=== PATIENT | male | born 1960 | race Caucasian/White ===

== ENCOUNTER → 2017-08-15 | Emergency (ER) | payer SELFPAY ==
[~2017-08-15] MED LIST: Adacel Vial IM ONE; MORPHINE SULFATE 4 MG INJ IV ONE; MORPHINE SULFATE 4 MG INJ ONE; Sodium Chloride 0.9% 1000 ML 1,000 ML IV SCH; Sodium Chloride 0.9% 1000 ML 1,000 ML IV STA; Sodium Chloride 0.9% 1000 ML 1,000 ML ONE; TYLENOL 325 MG ONE; TYLENOL 325 MG PO STA; Zofran 4 MG/2 ML VIAL IV ONE; Zofran 4 MG/2 ML VIAL ONE
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
[2017-08-15 00:42] LABS: BASOPHIL % 0.3 % (0.0-0.4); Basophil (Absolute #) 0.02 (0-0.4); Eosinophil % 1.6 % (0.00-5.0); Eosinophil (Absolute #) 0.11 (0-0.5); Granulocyte Absolute (ANC) 3.98 (1.4-6.9); Granulocytes % 56.9 % (36.0-66.0); Hematocrit 42.7 % (42-50); Hemoglobin 14.3 gm/dl (12.5-18.0); Lymphocyte (Absolute #) 2.31 (1.0-4.6); Mean Cell Volume 99.8 fl (78-100); Mean Corpuscular Hemoglobin 33.4 pg (26-32); Mean Corpuscular Hgb Concent. 33.5 g/dl (32-36); Mean Platelet Volume 9.6 fl (6-9.5); Monocyte (Absolute #) 0.57 (0.0-1.3); Monocytes % 8.2 % (0.0-12.0); Platelet Count 174 K/mm3 (150-450); Red Blood Count 4.28 M/mm3 (4.1-5.6); Red Cell Distribution Width 14.2 % (11.5-14.0)
[2017-08-15 00:59] LABS: INR 0.94 (0.8-3.0)
[2017-08-15 01:10] LABS: ALBUMIN 4.3 g/dL (3.5-5.0); ALKALINE PHOSPHATASE 89 U/L (38-126); AMYLASE 95 U/L (30-110); BLOOD UREA NITROGEN 9 mg/dL (9-20); CHLORIDE 107 mmol/L (98-107); Calcium 8.9 mg/dL (8.4-10.2); Carbon Dioxide 23 mmol/L (22-30); Creatinine 1 0.74 mg/dL (0.66-1.25); ETHYL ALCOHOL 287 mg/dL (0-10); Glucose 132 mg/dL (74-106); LIPASE 542 U/L (23-300); Potassium 3.7 mmol/L (3.5-5.1); SGOT/AST 43 U/L (17-59); SGPT/ALT 22 U/L (0-50); SODIUM 146 mmol/L (137-145); Total Protein 7.6 g/dL (6.3-8.2)
[2017-08-15 01:58] LABS: Appearance CLEAR (CLEAR); Bilirubin NEGATIVE (NEGATIVE); Glucose NEGATIVE (NEGATIVE); Ketones NEGATIVE (NEGATIVE); Leukocyte Esterase NEGATIVE (NEGATIVE); Nitrite NEGATIVE (NEGATIVE); Protein,Urine Dip TRACE (Negative); Urobilinogen NORMAL mg/dL (0-1)
[2017-08-15 01:59] LABS: Bacteria FEW /HPF (NEGATIVE); Blood NEGATIVE Ery/ul (0-5); Epithelial Cells FEW /HPF (FEW); WBC 0-2 /HPF (0-5)
[2017-08-15 02:11] LABS: Amphetamine,Urine NEGATIVE (NEGATIVE); Barbiturate,Urine NEGATIVE (NEGATIVE); Benzodiazepine,Urine NEGATIVE (NEGATIVE); Cocaine,Urine NEGATIVE (NEGATIVE); Methadone,Urine NEGATIVE (NEGATIVE); Opiate,Urine NEGATIVE (NEGATIVE); PCP,Urine NEGATIVE (NEGATIVE); THC,Urine NEGATIVE (NEGATIVE)
[2017-08-15 04:54] VITALS: BP 128/75; PULSE 71
[2017-08-15 05:15] VITALS: O2SAT 96
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
== END ==
LOC: ED 00:04
DX: S22.049A Unspecified fracture of fourth thoracic vertebra, initial encounter for closed fracture (principal); S22.069A Unspecified fracture of T7-T8 vertebra, initial encounter for closed fracture; S22.079A Unspecified fracture of T9-T10 vertebra, initial encounter for closed fracture; S22.059A Unspecified fracture of T5-T6 vertebra, initial encounter for closed fracture; V29.49XA Motorcycle driver injured in collision with other motor vehicles in traffic accident, initial encounter; F10.129 Alcohol abuse with intoxication, unspecified
CPT/HCPCS: 36000; 36415; 70450; 71260; 72125; 74177; 76376; 80053; 80307; 81000; 82150; 83690; 84484; 85025; 85610; 90471; 90715; 93005; 93041; 96360; 96361; 96374; 99285; J2270; J2405; A9270-GY; G0480

== ENCOUNTER 2019-05-09 19:13 | Emergency (ER) | payer MEDICAID, SELFPAY ==
[2019-05-09] MEDS ORDERED: Zofran 4 MG/2 ML VIAL IV ONE (19:22)
[2019-05-09] MEDS ORDERED: Sodium Chloride 0.9% 1000 ML 1,000 ML IV STA (19:22)
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
[2019-05-09 19:27] LABS: A-aADO2 454; ABG POTASSIUM 3.9 (3.5-5.1); ARTERIAL BLD GAS O2 SATURATION 99.3 % (95-100); ARTERIAL BLOOD GAS BASE EXCESS 1.3 (-2.0-2.0); ARTERIAL BLOOD GAS FIO2 100 %; ARTERIAL BLOOD GAS PCO2 47 mmHg (35-45); ARTERIAL BLOOD GAS PO2 200 mmHg (75-100); ARTERIAL BLOOD GAS pH 7.37 (7.35-7.45); HCO3- 27.2 (22-28); HGB O2 SAT 87.6 g/dF (94-100); paO2 pAO1 0.31
[2019-05-09 19:29] LABS: CARBOXYHEMOGLOBIN 10.9 % THgb (0.0-6.9)
[2019-05-09 19:30] LABS: ABG SITE LEFT RADIAL; ALLEN TEST OK? YES
[2019-05-09 19:31] LABS: Absolute Neutrophil Ct (ANC) 7.53 (1.4-6.9); BASOPHIL % 0.6 % (0.0-0.4); Basophil (Absolute #) 0.07 (0-0.4); Eosinophil % 1.3 % (0.00-5.0); Eosinophil (Absolute #) 0.16 (0-0.5); Hemoglobin 15.5 gm/dl (12.5-18.0); Lymphocyte (Absolute #) 3.66 (1.0-4.6); Lymphocytes % 29.9 % (24.0-44.0); Mean Cell Volume 102.6 fl (78-100); Mean Corpuscular Hemoglobin 33.1 pg (26-32); Mean Corpuscular Hgb Concent. 32.3 g/dl (32-36); Mean Platelet Volume 9.5 fl (7.5-11.0); Monocyte (Absolute #) 0.84 (0.0-1.3); Monocytes % 6.9 % (0.0-12.0); Neutrophil % 61.3 % (36.0-66.0); Platelet Count 257 K/mm3 (150-450); Red Blood Count 4.68 M/mm3 (4.1-5.6); White Blood Count 12.3 K/mm3 (4.0-10.5)
[2019-05-09] MEDS ORDERED: solu-MEDROL 125 MG IV ONE (19:31)
[2019-05-09] MEDS ORDERED: Sodium Chloride 0.9% 1000 ML 1,000 ML ONE (19:37)
[2019-05-09] MEDS ORDERED: solu-MEDROL 125 MG ONE (19:37)
[2019-05-09] MEDS ORDERED: Zofran 4 MG/2 ML VIAL ONE (19:37)
[2019-05-09 19:38] LABS: ALBUMIN 4.6 g/dL (3.5-5.0); ALKALINE PHOSPHATASE 97 U/L (38-126); ANION GAP 14.9 MEQ/L (5-15); BLOOD UREA NITROGEN 7 mg/dL (9-20); CHLORIDE 109 mmol/L (98-107); Calcium 8.8 mg/dL (8.4-10.2); Carbon Dioxide 30 mmol/L (22-30); Creatinine 1 0.89 mg/dL (0.66-1.25); Glucose 109 mg/dL (74-106); SGOT/AST 32 U/L (17-59); SGPT/ALT 14 U/L (0-50); SODIUM 149 mmol/L (137-145); Total Protein 8.4 g/dL (6.3-8.2)
[2019-05-09] MEDS ORDERED: PROVENTIL 2.5 MG/3 ML NEB IH ONE ×2 (19:39→19:43)
[2019-05-09 19:48] LABS: ETHYL ALCOHOL 347 mg/dL (0-10)
[2019-05-09 21:42] LABS: Amphetamine,Urine NEGATIVE (NEGATIVE); Barbiturate,Urine NEGATIVE (NEGATIVE); Benzodiazepine,Urine NEGATIVE (NEGATIVE); Cocaine,Urine NEGATIVE (NEGATIVE); Methadone,Urine NEGATIVE (NEGATIVE); Opiate,Urine NEGATIVE (NEGATIVE); PCP,Urine NEGATIVE (NEGATIVE); THC,Urine NEGATIVE (NEGATIVE)
[2019-05-09 22:27] LABS: ARTERIAL BLOOD GAS PCO2 45 mmHg (35-45); ARTERIAL BLOOD GAS PO2 65 mmHg (75-100); ARTERIAL BLOOD GAS pH 7.37 (7.35-7.45)
[2019-05-09 22:28] LABS: A-aADO2 592; ABG HEMOGLOBIN 15.5; ABG POTASSIUM 4.3 (3.5-5.1); ARTERIAL BLD GAS O2 SATURATION 93.5 % (95-100); ARTERIAL BLOOD GAS BASE EXCESS 0.3 (-2.0-2.0); ARTERIAL BLOOD GAS FIO2 100 %; CARBOXYHEMOGLOBIN 7.2 % THgb (0.0-6.9); Methhemoglobin 0.8 % (1.4-1.5)
[2019-05-09] MEDS ORDERED: Sodium Chloride 0.9% 500 ML 500 ML IV ONE ×2 (22:28→22:30)
[2019-05-09 22:29] LABS: ABG SITE LEFT BRACHIAL; ALLEN TEST OK? NO
[2019-05-10 00:22] VITALS: BP 145/93; PULSE 78; O2SAT 96
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
== END 2019-05-10 00:22 | disposition home or self-care (01) ==
LOC: ED 19:13
DX: J70.5 Respiratory conditions due to smoke inhalation (principal); F10.129 Alcohol abuse with intoxication, unspecified
CPT/HCPCS: 36000; 36415; 36600; 71045; 80053; 80307; 82375; 82803; 85025; 93005; 93041; 94640; 94760; 96360; 96361; 96374; 96375; 99285; J2405; J2930; J7609; A9270-GY; G0480

== ENCOUNTER 2019-10-05 15:48 | Emergency (ER) | payer SELFPAY ==
[2019-10-05] MEDS ORDERED: Zofran 4 MG/2 ML VIAL IV ONE (16:02)
[2019-10-05] MEDS ORDERED: Sodium Chloride 0.9% 1000 ML 1,000 ML IV STA (16:02)
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
[2019-10-05] MEDS ORDERED: DUONEB 0.5-3 MG/3 ml Neb IH ONE ×2 (16:21→16:29)
[2019-10-05] MEDS ORDERED: solu-MEDROL 125 MG IV ONE (16:21)
--- NOTE | 2019-10-05 16:30 | XRAY ---
Indication: Syncope. Status post fall. Intoxication. Comparison: May 09, 2019. Portable chest again demonstrates normal heart and lungs with incidental calcified granulomas. Bony thorax intact again with mild degenerative changes. No new/acute findings.
[2019-10-05] MEDS ORDERED: solu-MEDROL 125 MG ONE (16:35)
[2019-10-05] MEDS ORDERED: Sodium Chloride 0.9% 1000 ML 1,000 ML ONE (16:35)
[2019-10-05] MEDS ORDERED: Zofran 4 MG/2 ML VIAL ONE (16:35)
[2019-10-05 16:59] LABS: Appearance CLEAR (CLEAR); Bilirubin NEGATIVE (NEGATIVE); Blood NEGATIVE Ery/ul (0-5); Glucose NEGATIVE (NEGATIVE); Ketones NEGATIVE (NEGATIVE); Leukocyte Esterase NEGATIVE (NEGATIVE); Nitrite NEGATIVE (NEGATIVE); Protein,Urine Dip NEGATIVE (Negative); Specific Gravity 1.003 (1.005-1.025); Urobilinogen NEGATIVE mg/dL (0-1)
[2019-10-05 17:06] LABS: Absolute Neutrophil Ct (ANC) 2.02 (1.4-6.9); BASOPHIL % 0.4 % (0.0-0.4); Basophil (Absolute #) 0.02 (0-0.4); Eosinophil % 3.1 % (0.00-5.0); Eosinophil (Absolute #) 0.16 (0-0.5); Hematocrit 48.1 % (42-50); Lymphocyte (Absolute #) 2.58 (1.0-4.6); Lymphocytes % 50.4 % (24.0-44.0); Mean Cell Volume 102.6 fl (78-100); Mean Corpuscular Hemoglobin 34.1 pg (26-32); Mean Corpuscular Hgb Concent. 33.3 g/dl (32-36); Mean Platelet Volume 9.7 fl (7.5-11.0); Monocyte (Absolute #) 0.34 (0.0-1.3); Monocytes % 6.6 % (0.0-12.0); Neutrophil % 39.5 % (36.0-66.0); Platelet Count 195 K/mm3 (150-450); Red Blood Count 4.69 M/mm3 (4.1-5.6); Red Cell Distribution Width 14.5 % (11.5-14.0); White Blood Count 5.1 K/mm3 (4.0-10.5)
[2019-10-05 17:11] LABS: ALBUMIN 4.4 g/dL (3.5-5.0); ALKALINE PHOSPHATASE 80 U/L (38-126); ANION GAP 13.7 MEQ/L (5-15); BLOOD UREA NITROGEN 8 mg/dL (9-20); CHLORIDE 112 mmol/L (98-107); Calcium 8.7 mg/dL (8.4-10.2); Carbon Dioxide 26 mmol/L (22-30); Creatinine 1 0.67 mg/dL (0.66-1.25); ETHYL ALCOHOL 283 mg/dL (0-10); Glucose 97 mg/dL (74-106); SGOT/AST 24 U/L (17-59); SGPT/ALT 13 U/L (0-50); SODIUM 148 mmol/L (137-145); Total Protein 7.2 g/dL (6.3-8.2)
[2019-10-05 20:21] LABS: Amphetamine,Urine NEGATIVE (NEGATIVE); Barbiturate,Urine NEGATIVE (NEGATIVE); Benzodiazepine,Urine NEGATIVE (NEGATIVE); Cocaine,Urine NEGATIVE (NEGATIVE); Methadone,Urine NEGATIVE (NEGATIVE); Opiate,Urine NEGATIVE (NEGATIVE); PCP,Urine NEGATIVE (NEGATIVE); THC,Urine NEGATIVE (NEGATIVE)
[2019-10-05 21:28] VITALS: BP 84/56; PULSE 63; O2SAT 93
--- NOTE | 2019-10-06 09:01 | XRAY ---
Indication: Injury following fall. Multiple contiguous axial images obtained through the head without contrast. Comparison: August 15, 2017. Stable age-appropriate global atrophy and mild periventricular degenerative micro-ischemia bilaterally. No acute intracranial hemorrhage, abnormal extra-axial fluid collection, or mass effect. Ventricular system remains prominent. Fourth ventricle is midline. Bony calvarium intact. Visualized paranasal sinuses and mastoid air cells are clear. Impression: 1. Continued nonacute senile brain. 2. Stable prominent ventricular system. Again normal pressure hydrocephalus not completely excluded in the right clinical setting.
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
== END 2019-10-05 21:33 | disposition home or self-care (01) ==
LOC: ED 15:48
DX: E86.0 Dehydration (principal); F10.929 Alcohol use, unspecified with intoxication, unspecified; R55 Syncope and collapse; J44.9 Chronic obstructive pulmonary disease, unspecified
CPT/HCPCS: 36000; 36415; 70450; 71045; 72125; 80053; 80307; 81001; 82550; 84484; 85025; 93005; 93041; 94640; 96360; 96374; 96375; 99284; J2405; J2930; A9270-GY; G0480

== ENCOUNTER 2020-10-16 16:52 | Observation (INO) | payer MEDICAID ==
[2020-10-16] MEDS ORDERED: DUONEB 0.5-3 MG/3 ml Neb IH ONE (16:55)
--- NOTE | 2020-10-16 17:03 | ERPHSYRPT ---
- History of Present Illness Time Seen by Provider: 10/16/20 17:03 Source: patient, family Exam Limitations: no limitations Physician History: This is a 59-year-old white male who had a history of COPD and emphysema and presents with 1 week history of worsening shortness of breath, cough and 103.2 F. The cough is productive and yellow sputum. Patient is not vaccinated. Patient does have a significant alcohol consumption history. He has chest pain only with cough. Patient has had fevers and chills at home. Patient denies abdominal pain. He has had no nausea vomiting but has had a few loose stools. He has no known contact with anyone who has tested positive for the anton virus. Timing/Duration: week(s) (1) Activities at Onset: none Severity of Dyspnea-Max: moderate Severity of Dyspnea-Current: moderate Possible Cause: frequent episodes Modifying Factors: Improves With: coughing Associated Symptoms: cough, chest pain/discomfort (With cough), productive cough (Yellowish sputum) Allergies/Adverse Reactions: No Known Drug Allergies Allergy (Verified 10/16/20 17:03) Home Medications: No Reportable Medications [No Reported Medications] 10/05/19 [History] Hx Tetanus, Diphtheria Vaccination/Date Given: No Hx Influenza Vaccination/Date Given: No Hx Pneumococcal Vaccination/Date Given: No Travel Risk - International Travel Have you traveled outside of the country in past 3 weeks: No - Coronavirus Screening Are you exhibiting any of the following symptoms?: Yes Symptoms: Fever, Cough: New Onset, Shortness of Breath Close contact with a COVID-19 positive Pt in past 14-21 Days: No - Vaccine Status Have you recieved a Covid-19 vaccination: No - Review of Systems Constitutional: Fever, Chills Eyes: No Symptoms Ears, Nose, & Throat: No Symptoms Respiratory: Cough, Dyspnea Cardiac: No Symptoms Abdominal/Gastrointestinal: No Symptoms Genitourinary Symptoms: No Symptoms Musculoskeletal: No Symptoms Skin: No Symptoms Neurological: No Symptoms Psychological: No Symptoms Endocrine: No Symptoms Hematologic/Lymphatic: No Symptoms Immunological/Allergic: No Symptoms All Other Systems: Reviewed and Negative - Past Medical History Pertinent Past Medical History: No Neurological History: No Pertinent History ENT History: No Pertinent History Cardiac History: No Pertinent History Respiratory History: COPD, Emphysema Endocrine Medical History: No Pertinent History Musculoskeletal History: No Pertinent History GI Medical History: No Pertinent History History: No Pertinent History Psycho-Social History: No Pertinent History Male Reproductive Disorders: No Pertinent History - Past Surgical History Past Surgical History: Yes Neuro Surgical History: No Pertinent History Cardiac: No Pertinent History Respiratory: No Pertinent History Gastrointestinal: No Pertinent History Genitourinary: No Pertinent History Musculoskeletal: No Pertinent History Male Surgical History: No Pertinent History - Social History Smoking Status: Current every day smoker How long have you smoked: years Exposure to second hand smoke: No Drug Use: none Patient Lives Alone: No - Nursing Vital Signs Nursing Vital Signs: Initial Vital Signs Temperature 103.2 F 10/16/20 16:53 Pulse Rate 118 H 10/16/20 16:53 Respiratory Rate 34 H 10/16/20 16:53 Blood Pressure 238/109 10/16/20 16:53 O2 Sat by Pulse Oximetry 94 L 10/16/20 16:53 Pain Scale Pain Intensity 0 - Physical Exam General Appearance: mild distress, alert, anxiety Eye Exam: PERRL/EOMI, eyes nml inspection Ears, Nose, Throat Exam: hearing grossly normal, normal ENT inspection, normal pharynx Neck Exam: normal inspection, non-tender, supple, full range of motion Respiratory Exam: normal breath sounds, chest tenderness (With cough), lungs clear, respiratory distress (Mild), airway intact Cardiovascular/Chest Exam: tachycardia Abdominal/Gastrointestinal Exam: soft, normal bowel sounds, No tenderness Rectal Exam: not done Extremity Exam: non-tender, normal range of motion, normal inspection, normal capillary refill, no calf tenderness, no pedal edema, pelvis stable Neurologic Exam: alert, oriented x 3, cooperative, manager internet II-XII nml as tested, normal mood/affect, nml cerebellar function, nml station & gait, sensation nml Skin Exam: normal color, warm Lymphatic Exam: No adenopathy SpO2 Interpretation: borderline oxygenation O2 Delivery: Nasal Cannula - Course Nursing assessment & vital signs reviewed: Yes EKG Interpreted by Me: RATE ([id number]), Sinus Tach, NORMAL AXIS, NORMAL INTERVALS, NORMAL QRS, Other (When compared to EKG dated 10/05/2019, there is new sinus tachycardia, left atrial enlargement and diffuse borderline ST depression that are new on today's EKG.) Ordered Tests: Active Orders 24 hr Category Date Time Status Area Counselor STAT Care 10/16/20 17:18 Active EKG-ER Only STAT Care 10/16/20 17:17 Active IV Insertion STAT Care 10/16/20 17:17 Active IV Insertion-2nd Peripheral STAT Care 10/16/20 17:23 Active Oxygen-ED Only Nasal Cannula 3 lpm Care 10/16/20 17:23 Active Pulse Oximetry (ED) STAT Care 10/16/20 17:17 Active CHEST 1 VIEW (PORTABLE) Stat Exams 10/16/20 17:18 Taken CHEST WITH CONTRAST [CT] Stat Exams 10/16/20 18:25 Taken Alcohol [ETHYL ALCOHOL] Stat Lab 10/16/20 17:05 Completed BLOOD CULTURE Stat Lab 10/16/20 17:05 Received CBC W DIFF Stat Lab 10/16/20 17:05 Completed CMP Stat Lab 10/16/20 17:05 Completed CULTURE,SPUTUM Stat Lab 10/16/20 20:00 Ordered D-DIMER QUANTITATIVE Stat Lab 10/16/20 17:05 Completed Lactic Acid Stat Lab 10/16/20 17:21 Completed Lactic Acid Stat Lab 10/16/20 19:32 Completed MAGNESIUM Stat Lab 10/16/20 17:05 Completed Manual Differential NC Stat Lab 10/16/20 17:05 Completed NT PRO BNP Stat Lab 10/16/20 17:05 Completed TROPONIN Q3H Lab 10/16/20 17:05 Completed TROPONIN Q3H Lab 10/16/20 19:55 Received TROPONIN Q3H Lab 10/16/20 23:30 Ordered TROPONIN Q3H Lab 10/17/20 02:30 Ordered TROPONIN Q3H Lab 10/17/20 05:30 Ordered Respiratory Therapy Assessment DAILY RT 10/16/20 17:13 Active Transfer Order Routine Transfer 10/16/20 Ordered Medication Summary Generic Name Dose Route Start Last Admin Trade Name Freq PRN Reason Stop Dose Admin Sodium Chloride 1,000 mls @ 100 mls/hr 10/16/20 17:30 10/16/20 17:40 Sodium Chloride 0.9% 1000 Ml IV 11/15/20 17:29 100 mls/hr .Q10H JAROD Administration Ceftriaxone Sodium/Dextrose 1 g in 50 mls @ 100 mls/hr 10/16/20 20:46 Rocephin 1 Gm-D5w 50 Ml Bag IV 10/16/20 21:15 STAT STA Discontinued Medications Generic Name Dose Route Start Last Admin Trade Name Freq PRN Reason Stop Dose Admin Hydrocodone Bitart/Acetaminophen 10 ml 10/16/20 17:19 10/16/20 17:41 Hydrocodone-Acetamin 2.5-108/5 Ml Solution PO 10/16/20 17:20 10 ml STAT STA Administration Hydrocodone Bitart/Acetaminophen Confirm 10/16/20 17:30 Hydrocodone-Acetamin 2.5-108/5 Ml Solution Administered 10/16/20 17:31 Dose 10 ml .ROUTE .STK-MED ONE Albuterol/Ipratropium Confirm 10/16/20 16:55 Duoneb 0.5-3 Mg/3 Ml Neb Administered 10/16/20 16:56 Dose 3 ml IH .STK-MED ONE Methylprednisolone Sodium Succinate 125 mg 10/16/20 17:17 10/16/20 17:41 Solu-Medrol 125 Mg IV 10/16/20 17:18 125 mg STAT ONE Administration Methylprednisolone Sodium Succinate Confirm 10/16/20 17:30 Solu-Medrol 125 Mg Administered 10/16/20 17:31 Dose 125 mg .ROUTE .STK-MED ONE Sterile Water Confirm 10/16/20 17:30 Sterile H2o 10 Ml Administered 10/16/20 17:31 Dose 10 ml IJ .STK-MED ONE Lab/Rad Data: Laboratory Result Diagrams 10/16/20 17:05 10/16/20 17:05 Laboratory Results 10/16/20 10/16/20 10/16/20 Range/Units 19:32 17:21 17:05 WBC (4.0-10.5) K/mm3 RBC (4.1-5.6) M/mm3 Hgb (12.5-18.0) gm/dl Hct (42-50) % MCV (78-100) fl MCH (26-32) pg MCHC (32-36) g/dl RDW (11.5-14.0) % Plt Count (150-450) K/mm3 MPV (7.5-11.0) fl D-Dimer (215-500) ng/mL Sodium (137-145) mmol/L Potassium (3.5-5.1) mmol/L Chloride (98-107) mmol/L Carbon Dioxide (22-30) mmol/L Anion Gap (5-15) MEQ/L BUN (9-20) mg/dL Creatinine (0.66-1.25) mg/dL Estimated GFR ML/MIN Glucose (74-106) mg/dL Lactic Acid 1.2 2.2 H (0.4-2.0) Calcium (8.4-10.2) mg/dL Magnesium (1.6-2.3) mg/dL Total Bilirubin (0.2-1.3) mg/dL AST (17-59) U/L ALT (0-50) U/L Alkaline Phosphatase (38-126) U/L Troponin I (0.000-0.034) ng/mL NT-Pro-B Natriuret Pep (0-900) pg/mL Serum Total Protein (6.3-8.2) g/dL Albumin (3.5-5.0) g/dL Ethyl Alcohol < 10 (0-10) mg/dL 10/16/20 10/16/20 10/16/20 Range/Units 17:05 17:05 17:05 WBC (4.0-10.5) K/mm3 RBC (4.1-5.6) M/mm3 Hgb (12.5-18.0) gm/dl Hct (42-50) % MCV (78-100) fl MCH (26-32) pg MCHC (32-36) g/dl RDW (11.5-14.0) % Plt Count (150-450) K/mm3 MPV (7.5-11.0) fl D-Dimer 1401 H* (215-500) ng/mL Sodium 137 (137-145) mmol/L Potassium 4.1 (3.5-5.1) mmol/L Chloride 92 L (98-107) mmol/L Carbon Dioxide 22 (22-30) mmol/L Anion Gap 26.5 H (5-15) MEQ/L BUN 14 (9-20) mg/dL Creatinine 0.83 (0.66-1.25) mg/dL Estimated GFR > 60.0 ML/MIN Glucose 142 H (74-106) mg/dL Lactic Acid (0.4-2.0) Calcium 9.1 (8.4-10.2) mg/dL Magnesium 1.6 (1.6-2.3) mg/dL Total Bilirubin 0.70 (0.2-1.3) mg/dL AST 34 (17-59) U/L ALT 19 (0-50) U/L Alkaline Phosphatase 79 (38-126) U/L Troponin I 0.017 (0.000-0.034) ng/mL NT-Pro-B Natriuret Pep 104 (0-900) pg/mL Serum Total Protein 7.9 (6.3-8.2) g/dL Albumin 4.5 (3.5-5.0) g/dL Ethyl Alcohol (0-10) mg/dL 10/16/20 Range/Units 17:05 WBC 10.0 (4.0-10.5) K/mm3 RBC 4.67 (4.1-5.6) M/mm3 Hgb 14.9 (12.5-18.0) gm/dl Hct 44.7 (42-50) % MCV 95.7 (78-100) fl MCH 31.9 (26-32) pg MCHC 33.3 (32-36) g/dl RDW 13.0 (11.5-14.0) % Plt Count 222 (150-450) K/mm3 MPV 9.9 (7.5-11.0) fl D-Dimer (215-500) ng/mL Sodium (137-145) mmol/L Potassium (3.5-5.1) mmol/L Chloride (98-107) mmol/L Carbon Dioxide (22-30) mmol/L Anion Gap (5-15) MEQ/L BUN (9-20) mg/dL Creatinine (0.66-1.25) mg/dL Estimated GFR ML/MIN Glucose (74-106) mg/dL Lactic Acid (0.4-2.0) Calcium (8.4-10.2) mg/dL Magnesium (1.6-2.3) mg/dL Total Bilirubin (0.2-1.3) mg/dL AST (17-59) U/L ALT (0-50) U/L Alkaline Phosphatase (38-126) U/L Troponin I (0.000-0.034) ng/mL NT-Pro-B Natriuret Pep (0-900) pg/mL Serum Total Protein (6.3-8.2) g/dL Albumin (3.5-5.0) g/dL Ethyl Alcohol (0-10) mg/dL - Progress Progress: improved, re-examined Air Movement: fair Progress Note: 10/16/20 20:41 CAT scan of the chest with contrast is negative for any pulmonary embolus. There is diffuse bilateral patchy airspace disease without consolidation or effusion. Medical decision making: This patient would be best served in the hospital setting. I spoke with Dr. maynard. I reviewed the patient history, condition, physical findings, laboratory results, EKG findings and CAT scan of the chest results. We will place the patient in observation. We will also provide the patient with intravenous Rocephin and azithromycin. We will perform a Covid test on this patient. If is positive then we will contact Dr. Saleh for placement in observation on the Covid unit. Blood Culture(s) Obtained: Yes Antibiotics given: Yes Discussed with : Irma Counseled pt/family regarding: lab results, diagnosis, need for follow-up, rad results - Departure Departure Disposition: Observation Clinical Impression: Hypoxia, Cough, Pulmonary infiltrates on CXR Condition: Stable Critical Care Time: No Referrals: RAZA CRUZ [NON-STAFF PHY W/O PRIVILEGES] -
[2020-10-16] MEDS ORDERED: solu-MEDROL IV ONE (17:17)
[2020-10-16] MEDS ORDERED: HYDROCODONE-ACETAMIN 2.5-108/5 ML SOLUTION PO STA (17:19)
[2020-10-16] MEDS ORDERED: solu-MEDROL ONE (17:30)
[2020-10-16] MEDS ORDERED: HYDROCODONE-ACETAMIN 2.5-108/5 ML SOLUTION ONE (17:30)
[2020-10-16] MEDS ORDERED: Sterile H2O 10 ml IJ ONE (17:30)
[2020-10-16] MEDS ORDERED: Sodium Chloride 0.9% 1000 ML 1,000 ML IV SCH (17:30)
[2020-10-16] MEDS ORDERED: Sodium Chloride 0.9% 1000 ML 1,000 ML ONE (17:30)
[2020-10-16 17:34] LABS: Hematocrit 44.7 % (42-50); Hemoglobin 14.9 gm/dl (12.5-18.0); Mean Cell Volume 95.7 fl (78-100); Mean Corpuscular Hemoglobin 31.9 pg (26-32); Mean Corpuscular Hgb Concent. 33.3 g/dl (32-36); Mean Platelet Volume 9.9 fl (7.5-11.0); Platelet Count 222 K/mm3 (150-450); Red Blood Count 4.67 M/mm3 (4.1-5.6)
[2020-10-16 17:57] LABS: ALBUMIN 4.5 g/dL (3.5-5.0); ALKALINE PHOSPHATASE 79 U/L (38-126); ANION GAP 26.5 MEQ/L (5-15); BLOOD UREA NITROGEN 14 mg/dL (9-20); CHLORIDE 92 mmol/L (98-107); Calcium 9.1 mg/dL (8.4-10.2); Carbon Dioxide 22 mmol/L (22-30); Creatinine 1 0.83 mg/dL (0.66-1.25); EST GLOMERULAR FILTRATION RATE > 60.0 ML/MIN; Glucose 142 mg/dL (74-106); MAGNESIUM 1.6 mg/dL (1.6-2.3); NT PRO BNP 104 pg/mL (0-900); Potassium 4.1 mmol/L (3.5-5.1); SGOT/AST 34 U/L (17-59); SGPT/ALT 19 U/L (0-50); SODIUM 137 mmol/L (137-145); Total Protein 7.9 g/dL (6.3-8.2)
[2020-10-16] MEDS ORDERED: ROCEPHIN 1 Gm-D5w 50 ml Bag** 1 G/50 ML IVPB IV STA (20:46)
[2020-10-16] MEDS ORDERED: ROCEPHIN 1 Gm-D5w 50 ml Bag** 1 G/50 ML IVPB IV ONE (20:51)
[2020-10-16] MEDS ORDERED: Zofran 4 MG/2 ML VIAL IV PRN (22:32)
[2020-10-16] MEDS ORDERED: Ativan 2 MG/1 ML VIAL IV PRN (22:32)
[2020-10-16] MEDS: Sodium Chloride 0.9% 1000 ML 1,000 ML IV SCH (22:54)
[2020-10-16 23:15] LABS: ANISOCYTOSIS 1+; BAND 4 % (0.0-2.0); Lymphocytes 6 % (24-44); Monocyte 9 % (0.0-12.0); Neutrophils 81 % (36.-66.); Platelet Estimate NORMAL (NORMAL); Total Cells Counted 100
[2020-10-16 23:16] LABS: Poikilocytosis 1+
[2020-10-16] MEDS: PROVENTIL 2.5 MG/3 ML NEB IH PRN (23:36)
[2020-10-17] MEDS: TYLENOL 325 MG PO PRN ×2 (00:22→11:53)
[2020-10-17 05:01] LABS: Absolute Neutrophil Ct (ANC) 6.86 (1.4-6.9); Basophil (Absolute #) 0 (0-0.4); Eosinophil (Absolute #) 0 (0-0.5); Hematocrit 40.8 % (42-50); Hemoglobin 13.4 gm/dl (12.5-18.0); Lymphocyte (Absolute #) 0.28 (1.0-4.6); Lymphocytes % 3.6 % (24.0-44.0); Mean Cell Volume 97.8 fl (78-100); Mean Corpuscular Hemoglobin 32.1 pg (26-32); Mean Corpuscular Hgb Concent. 32.8 g/dl (32-36); Mean Platelet Volume 9.8 fl (7.5-11.0); Monocyte (Absolute #) 0.59 (0.0-1.3); Monocytes % 7.6 % (0.0-12.0); Neutrophil % 88.8 % (36.0-66.0); Platelet Count 191 K/mm3 (150-450); Red Blood Count 4.17 M/mm3 (4.1-5.6); Red Cell Distribution Width 12.7 % (11.5-14.0); White Blood Count 7.7 K/mm3 (4.0-10.5)
[2020-10-17 05:21] LABS: ALBUMIN 3.6 g/dL (3.5-5.0); ALKALINE PHOSPHATASE 62 U/L (38-126); ANION GAP 14.5 MEQ/L (5-15); BLOOD UREA NITROGEN 15 mg/dL (9-20); CHLORIDE 97 mmol/L (98-107); Calcium 9.1 mg/dL (8.4-10.2); Carbon Dioxide 26 mmol/L (22-30); Creatinine 1 0.73 mg/dL (0.66-1.25); EST GLOMERULAR FILTRATION RATE > 60.0 ML/MIN; Glucose 170 mg/dL (74-106); SGOT/AST 31 U/L (17-59); SGPT/ALT 19 U/L (0-50); SODIUM 134 mmol/L (137-145); Total Protein 6.4 g/dL (6.3-8.2)
[2020-10-17 06:53] LABS: Slide Review 1 YES
[2020-10-17] MEDS: PROVENTIL 2.5 MG/3 ML NEB IH PRN ×2 (07:26→11:15)
[2020-10-17] MEDS ORDERED: Nicoderm CQ 21 MG TOP SCH (08:00)
--- NOTE | 2020-10-17 08:43 | XRAY ---
Indication: Productive cough and fever. Elevated d-dimer. Multiple contiguous axial images obtained through the chest using 100 cc Isovue 370 contrast. Comparison: August 15, 2017. There is adequate opacification of the pulmonary arteries include the lobar and segmental branches. No pulmonary embolus. Heart not enlarged. Aorta minimally arteriosclerotic without aneurysm/dissection. Again chunky right hilar calcified nodes. No pathologic mediastinal/hilar lymphadenopathy. Lungs again hyperinflated with new diffuse bilateral patchy airspace opacities. No consolidation or large effusion. Incidental new left lung peripheral subsegmental atelectasis/scarring and tiny calcified granuloma. Stable small right upper lobe calcified granuloma. Bony thorax intact again with multilevel bridging/nonbridging endplate osteophytes. Limited upper abdomen again demonstrates tiny splenic calcified granulomas, mild fatty liver, and nonobstructing left renal micro-calculus. Impression: 1. Negative pulmonary embolus. 2. New diffuse bilateral patchy airspace disease. 3. Again incidental fatty liver, nonobstructing left renal micro-calculus, chronic bony findings, and old granulomatous disease.
--- NOTE | 2020-10-17 08:45 | XRAY ---
Indication: Productive cough and fever. Comparison: October 05, 2019. Portable chest again hyperinflated with new diffuse bilateral interstitial alveolar opacities without consolidation/large effusion. Heart not enlarged. Stable right hilar/right upper lobe calcified granulomas. Bony thorax intact again with mild degenerative changes.
[2020-10-17] MEDS: Sodium Chloride 0.9% 1000 ML 1,000 ML IV SCH (09:03)
[2020-10-17] MEDS ORDERED: Zithromax 500 MG/ 250 ML NaCl Premix 500 MG/250 ML IVPB IV SCH ×2 (10:00→22:00)
--- NOTE | 2020-10-17 12:06 | PCM.HP ---
History of Present Illness - Chief Complaint Chief Complaint: fever, chills and shortness of breath for 3-4 days History of Present Illness: is a 59 year old male.who had a history of COPD and emphysema and presents with 1 week history of worsening shortness of breath, cough and 103.2 F. The cough is productive and yellow sputum. Patient is not vaccinated. Patient does have a significant alcohol consumption history. He has chest pain only with cough. Patient has had fevers and chills at home. Patient denies abdominal pain. He has had no nausea vomiting but has had a few loose stools. He has no known contact with anyone who has tested positive for the anton virus. Timing/Duration: week(s) (1) Activities at Onset: none Severity of Dyspnea-Max: moderate Severity of Dyspnea-Current: moderate Possible Cause: frequent episodes Modifying Factors: Improves With: coughing Associated Symptoms: cough, chest pain/discomfort (With cough), productive cough (Yellowish sputum) - Review of Systems Constitutional: Fever, Chills Eyes: No Symptoms Ears, Nose, & Throat: No Symptoms Respiratory: Cough, Orthopnea, Short Of Breath, Wheezing Cardiac: Orthopnea, PND, No Chest Pain, No Edema, No Syncope Abdominal/Gastrointestinal: No Abdominal Pain, No Nausea, No Vomiting, No Diarrhea Genitourinary Symptoms: No Dysuria Musculoskeletal: No Back Pain, No Neck Pain Skin: No Rash Neurological: No Dizziness, No Focal Weakness, No Sensory Changes Psychological: No Symptoms Endocrine: No Symptoms Hematologic/Lymphatic: No Symptoms Immunological/Allergic: No Symptoms Medications & Allergies Home Medications: Home Medication List No Reportable Medications [No Reported Medications] 10/05/19 [History Confirmed 10/16/20] Allergies/Adverse Reactions: Allergies Allergy/AdvReac Type Severity Reaction Status Date / Time No Known Drug Allergies Allergy Verified 10/16/20 17:03 - Past Medical History Past Medical History: No Neurological History: No Pertinent History ENT History: No Pertinent History Cardiac History: No Pertinent History Respiratory History: No Pertinent History Endocrine Medical History: No Pertinent History Musculoskelatal History: No Pertinent History GI Medical History: No Pertinent History History: No Pertinent History Pyscho-Social History: No Pertinent History Male Reproductive Disorders: No Pertinent History Comment: - - Past Surgical History Past Surgical History: Yes Neuro Surgical History: No Pertinent History Cardiac History: No Pertinent History Respiratory Surgery: No Pertinent History GI Surgical History: No Pertinent History Genitourinary Surgical Hx: No Pertinent History Musculskeletal Surgical Hx: No Pertinent History Male Surgical History: No Pertinent History - Social History Smoking Status: Former smoker How long have you smoked: years Exposure to second hand smoke: No Alcohol: Daily Drug Use: none - Physical Exam Vital Signs: Vital Signs - 24 hr Temp Pulse Resp BP Pulse Ox 10/17/20 11:20 85 18 90 L 10/17/20 07:28 86 22 95 10/17/20 07:09 99.1 F 71 16 130/65 96 10/17/20 04:05 98.6 F 69 20 117/63 97 10/17/20 00:05 84 18 94 L 10/16/20 22:45 100.2 F 83 24 144/91 94 L 10/16/20 22:32 94 L 10/16/20 22:09 84 154/82 95 10/16/20 20:00 99.3 F 84 20 129/78 95 10/16/20 19:14 99 H 135/66 96 10/16/20 18:00 102 H 20 132/74 93 L 10/16/20 17:50 104 H 22 139/79 92 L 10/16/20 17:22 89 L 10/16/20 17:00 116 H 34 H 94 L 10/16/20 16:53 103.2 F 118 H 30 H 238/109 89 L Oxygen-Last 24 hours Oxygen Flowrate (L/min)-RT 4 General Appearance: no apparent distress, moderate distress, alert Neurologic Exam: alert, oriented x 3, No motor deficits Eye Exam: PERRL/EOMI, eyes nml inspection Ears, Nose, Throat Exam: normal ENT inspection, TMs normal, pharynx normal, moist mucous membranes Neck Exam: normal inspection, non-tender, supple, full range of motion Respiratory Exam: respiratory distress, diminished breath sounds, crackles/rales, rhonchi, wheezing Cardiovascular Exam: regular rate/rhythm, normal heart sounds, normal peripheral pulses Gastrointestinal/Abdomen Exam: soft, normal bowel sounds, No tenderness, No mass Back Exam: normal inspection, normal range of motion, No CVA tenderness, No vertebral tenderness Extremity Exam: normal inspection, normal range of motion, pelvis stable Skin Exam: normal color, warm, dry, No rash Lymphatic Exam: No adenopathy Results - Labs Lab/Micro Results: Lab Results-Last 24 Hours 10/16/20 10/16/20 10/16/20 Range/Units 17:05 17:05 17:05 WBC 10.0 (4.0-10.5) K/mm3 RBC 4.67 (4.1-5.6) M/mm3 Hgb 14.9 (12.5-18.0) gm/dl Hct 44.7 (42-50) % MCV 95.7 (78-100) fl MCH 31.9 (26-32) pg MCHC 33.3 (32-36) g/dl RDW 13.0 (11.5-14.0) % Plt Count 222 (150-450) K/mm3 MPV 9.9 (7.5-11.0) fl Gran % (36.0-66.0) % Eos # (Auto) (0-0.5) Absolute Lymphs (auto) (1.0-4.6) Absolute Monos (auto) (0.0-1.3) Lymphocytes % (24.0-44.0) % Monocytes % (0.0-12.0) % Eosinophils % (0.00-5.0) % Basophils % (0.0-0.4) % Absolute Granulocytes (1.4-6.9) Segmented Neutrophils 81 H (36.-66.) % Band Neutrophils 4 H (0.0-2.0) % Lymphocytes (Manual) 6 L (24-44) % Monocytes (Manual) 9 (0.0-12.0) % Basophils # (0-0.4) Platelet Estimate NORMAL (NORMAL) RBC Morphology ABNORMAL Poikilocytosis 1+ Anisocytosis 1+ D-Dimer 1401 H* (215-500) ng/mL Sodium 137 (137-145) mmol/L Potassium 4.1 (3.5-5.1) mmol/L Chloride 92 L (98-107) mmol/L Carbon Dioxide 22 (22-30) mmol/L Anion Gap 26.5 H (5-15) MEQ/L BUN 14 (9-20) mg/dL Creatinine 0.83 (0.66-1.25) mg/dL Estimated GFR > 60.0 ML/MIN Glucose 142 H (74-106) mg/dL Lactic Acid (0.4-2.0) Calcium 9.1 (8.4-10.2) mg/dL Magnesium 1.6 (1.6-2.3) mg/dL Total Bilirubin 0.70 (0.2-1.3) mg/dL AST 34 (17-59) U/L ALT 19 (0-50) U/L Alkaline Phosphatase 79 (38-126) U/L Troponin I (0.000-0.034) ng/mL NT-Pro-B Natriuret Pep 104 (0-900) pg/mL Serum Total Protein 7.9 (6.3-8.2) g/dL Albumin 4.5 (3.5-5.0) g/dL Ethyl Alcohol (0-10) mg/dL SARS-CoV-2 (PCR) (NEGATIVE) Slides for Path Review 10/16/20 10/16/20 10/16/20 Range/Units 17:05 17:05 17:21 WBC (4.0-10.5) K/mm3 RBC (4.1-5.6) M/mm3 Hgb (12.5-18.0) gm/dl Hct (42-50) % MCV (78-100) fl MCH (26-32) pg MCHC (32-36) g/dl RDW (11.5-14.0) % Plt Count (150-450) K/mm3 MPV (7.5-11.0) fl Gran % (36.0-66.0) % Eos # (Auto) (0-0.5) Absolute Lymphs (auto) (1.0-4.6) Absolute Monos (auto) (0.0-1.3) Lymphocytes % (24.0-44.0) % Monocytes % (0.0-12.0) % Eosinophils % (0.00-5.0) % Basophils % (0.0-0.4) % Absolute Granulocytes (1.4-6.9) Segmented Neutrophils (36.-66.) % Band Neutrophils (0.0-2.0) % Lymphocytes (Manual) (24-44) % Monocytes (Manual) (0.0-12.0) % Basophils # (0-0.4) Platelet Estimate (NORMAL) RBC Morphology Poikilocytosis Anisocytosis D-Dimer (215-500) ng/mL Sodium (137-145) mmol/L Potassium (3.5-5.1) mmol/L Chloride (98-107) mmol/L Carbon Dioxide (22-30) mmol/L Anion Gap (5-15) MEQ/L BUN (9-20) mg/dL Creatinine (0.66-1.25) mg/dL Estimated GFR ML/MIN Glucose (74-106) mg/dL Lactic Acid 2.2 H (0.4-2.0) Calcium (8.4-10.2) mg/dL Magnesium (1.6-2.3) mg/dL Total Bilirubin (0.2-1.3) mg/dL AST (17-59) U/L ALT (0-50) U/L Alkaline Phosphatase (38-126) U/L Troponin I 0.017 (0.000-0.034) ng/mL NT-Pro-B Natriuret Pep (0-900) pg/mL Serum Total Protein (6.3-8.2) g/dL Albumin (3.5-5.0) g/dL Ethyl Alcohol < 10 (0-10) mg/dL SARS-CoV-2 (PCR) (NEGATIVE) Slides for Path Review 10/16/20 10/16/20 10/16/20 Range/Units 19:32 19:55 20:50 WBC (4.0-10.5) K/mm3 RBC (4.1-5.6) M/mm3 Hgb (12.5-18.0) gm/dl Hct (42-50) % MCV (78-100) fl MCH (26-32) pg MCHC (32-36) g/dl RDW (11.5-14.0) % Plt Count (150-450) K/mm3 MPV (7.5-11.0) fl Gran % (36.0-66.0) % Eos # (Auto) (0-0.5) Absolute Lymphs (auto) (1.0-4.6) Absolute Monos (auto) (0.0-1.3) Lymphocytes % (24.0-44.0) % Monocytes % (0.0-12.0) % Eosinophils % (0.00-5.0) % Basophils % (0.0-0.4) % Absolute Granulocytes (1.4-6.9) Segmented Neutrophils (36.-66.) % Band Neutrophils (0.0-2.0) % Lymphocytes (Manual) (24-44) % Monocytes (Manual) (0.0-12.0) % Basophils # (0-0.4) Platelet Estimate (NORMAL) RBC Morphology Poikilocytosis Anisocytosis D-Dimer (215-500) ng/mL Sodium (137-145) mmol/L Potassium (3.5-5.1) mmol/L Chloride (98-107) mmol/L Carbon Dioxide (22-30) mmol/L Anion Gap (5-15) MEQ/L BUN (9-20) mg/dL Creatinine (0.66-1.25) mg/dL Estimated GFR ML/MIN Glucose (74-106) mg/dL Lactic Acid 1.2 (0.4-2.0) Calcium (8.4-10.2) mg/dL Magnesium (1.6-2.3) mg/dL Total Bilirubin (0.2-1.3) mg/dL AST (17-59) U/L ALT (0-50) U/L Alkaline Phosphatase (38-126) U/L Troponin I 0.036 H* (0.000-0.034) ng/mL NT-Pro-B Natriuret Pep (0-900) pg/mL Serum Total Protein (6.3-8.2) g/dL Albumin (3.5-5.0) g/dL Ethyl Alcohol (0-10) mg/dL SARS-CoV-2 (PCR) NEGATIVE (NEGATIVE) Slides for Path Review 10/16/20 10/17/20 10/17/20 Range/Units 23:30 02:58 04:50 WBC (4.0-10.5) K/mm3 RBC (4.1-5.6) M/mm3 Hgb (12.5-18.0) gm/dl Hct (42-50) % MCV (78-100) fl MCH (26-32) pg MCHC (32-36) g/dl RDW (11.5-14.0) % Plt Count (150-450) K/mm3 MPV (7.5-11.0) fl Gran % (36.0-66.0) % Eos # (Auto) (0-0.5) Absolute Lymphs (auto) (1.0-4.6) Absolute Monos (auto) (0.0-1.3) Lymphocytes % (24.0-44.0) % Monocytes % (0.0-12.0) % Eosinophils % (0.00-5.0) % Basophils % (0.0-0.4) % Absolute Granulocytes (1.4-6.9) Segmented Neutrophils (36.-66.) % Band Neutrophils (0.0-2.0) % Lymphocytes (Manual) (24-44) % Monocytes (Manual) (0.0-12.0) % Basophils # (0-0.4) Platelet Estimate (NORMAL) RBC Morphology Poikilocytosis Anisocytosis D-Dimer (215-500) ng/mL Sodium (137-145) mmol/L Potassium (3.5-5.1) mmol/L Chloride (98-107) mmol/L Carbon Dioxide (22-30) mmol/L Anion Gap (5-15) MEQ/L BUN (9-20) mg/dL Creatinine (0.66-1.25) mg/dL Estimated GFR ML/MIN Glucose (74-106) mg/dL Lactic Acid (0.4-2.0) Calcium (8.4-10.2) mg/dL Magnesium (1.6-2.3) mg/dL Total Bilirubin (0.2-1.3) mg/dL AST (17-59) U/L ALT (0-50) U/L Alkaline Phosphatase (38-126) U/L Troponin I 0.027 0.021 0.019 (0.000-0.034) ng/mL NT-Pro-B Natriuret Pep (0-900) pg/mL Serum Total Protein (6.3-8.2) g/dL Albumin (3.5-5.0) g/dL Ethyl Alcohol (0-10) mg/dL SARS-CoV-2 (PCR) (NEGATIVE) Slides for Path Review 10/17/20 10/17/20 Range/Units 04:50 04:50 WBC 7.7 (4.0-10.5) K/mm3 RBC 4.17 (4.1-5.6) M/mm3 Hgb 13.4 (12.5-18.0) gm/dl Hct 40.8 L (42-50) % MCV 97.8 (78-100) fl MCH 32.1 H (26-32) pg MCHC 32.8 (32-36) g/dl RDW 12.7 (11.5-14.0) % Plt Count 191 (150-450) K/mm3 MPV 9.8 (7.5-11.0) fl Gran % 88.8 H (36.0-66.0) % Eos # (Auto) 0 (0-0.5) Absolute Lymphs (auto) 0.28 L (1.0-4.6) Absolute Monos (auto) 0.59 (0.0-1.3) Lymphocytes % 3.6 L (24.0-44.0) % Monocytes % 7.6 (0.0-12.0) % Eosinophils % 0.0 (0.00-5.0) % Basophils % 0.0 (0.0-0.4) % Absolute Granulocytes 6.86 (1.4-6.9) Segmented Neutrophils (36.-66.) % Band Neutrophils (0.0-2.0) % Lymphocytes (Manual) (24-44) % Monocytes (Manual) (0.0-12.0) % Basophils # 0 (0-0.4) Platelet Estimate (NORMAL) RBC Morphology Poikilocytosis Anisocytosis D-Dimer (215-500) ng/mL Sodium 134 L (137-145) mmol/L Potassium 4.0 (3.5-5.1) mmol/L Chloride 97 L (98-107) mmol/L Carbon Dioxide 26 (22-30) mmol/L Anion Gap 14.5 (5-15) MEQ/L BUN 15 (9-20) mg/dL Creatinine 0.73 (0.66-1.25) mg/dL Estimated GFR > 60.0 ML/MIN Glucose 170 H (74-106) mg/dL Lactic Acid (0.4-2.0) Calcium 9.1 (8.4-10.2) mg/dL Magnesium (1.6-2.3) mg/dL Total Bilirubin 0.30 (0.2-1.3) mg/dL AST 31 (17-59) U/L ALT 19 (0-50) U/L Alkaline Phosphatase 62 (38-126) U/L Troponin I (0.000-0.034) ng/mL NT-Pro-B Natriuret Pep (0-900) pg/mL Serum Total Protein 6.4 (6.3-8.2) g/dL Albumin 3.6 (3.5-5.0) g/dL Ethyl Alcohol (0-10) mg/dL SARS-CoV-2 (PCR) (NEGATIVE) Slides for Path Review YES - Radiology Impressions Radiology Exams & Impressions: Radiology Procedures Category Date Time Status CHEST 1 VIEW (PORTABLE) Stat Exams 10/16/20 17:18 Completed CHEST WITH CONTRAST [CT] Stat Exams 10/16/20 18:25 Completed - Other Procedures and Tests Respiratory Therapy 10/16/20 17:13 Respiratory Therapy Assessment DAILY 10/16/20 23:37 Oxygen Nasal Cannula 4 lpm Assessment/Plan (1) Pneumonia Current Visit: Yes Status: Acute Qualifiers: Pneumonia type: due to unspecified organism Laterality: unspecified laterality Lung location: unspecified part of lung Qualified Code(s): J18.9 - Pneumonia, unspecified organism Assessment & Plan: Chief Complaint Diagnosis hypoxia Allergies Allergy/AdvReac Type Severity Reaction Status Date / Time No Known Drug Allergies Allergy Verified 10/16/20 17:03 Vital Signs (Last 24 hours) Temp Pulse Resp BP Pulse Ox 10/17/20 11:20 85 18 90 L 10/17/20 07:28 86 22 95 10/17/20 07:09 99.1 F 71 16 130/65 96 10/17/20 04:05 98.6 F 69 20 117/63 97 10/17/20 00:05 84 18 94 L 10/16/20 22:45 100.2 F 83 24 144/91 94 L 10/16/20 22:32 94 L 10/16/20 22:09 84 154/82 95 10/16/20 20:00 99.3 F 84 20 129/78 95 10/16/20 19:14 99 H 135/66 96 10/16/20 18:00 102 H 20 132/74 93 L 10/16/20 17:50 104 H 22 139/79 92 L 10/16/20 17:22 89 L 10/16/20 17:00 116 H 34 H 94 L 10/16/20 16:53 103.2 F 118 H 30 H 238/109 89 L Current Medications Generic Name Dose Route Start Last Admin Trade Name Cheri PRN Reason Stop Dose Admin Acetaminophen 650 mg 10/16/20 22:32 10/17/20 11:53 Tylenol 325 Mg PO 11/15/20 22:31 650 mg Q4H PRN PRN Administration PAIN, FEVER, HEADACHE Albuterol Sulfate 2.5 mg 10/16/20 23:33 10/17/20 11:15 Proventil 2.5 Mg/3 Ml Neb IH 11/15/20 23:32 2.5 mg Q4H PRN PRN Administration SHORTNESS OF BREATH/WHEEZING Sodium Chloride 1,000 mls @ 50 mls/hr 10/16/20 22:32 10/17/20 09:03 Sodium Chloride 0.9% 1000 Ml IV 11/15/20 22:31 50 mls/hr .Q20H JAROD Administration Ceftriaxone Sodium/Dextrose 1 g in 50 mls @ 100 mls/hr 10/17/20 22:00 Rocephin 1 Gm-D5w 50 Ml Bag IV 10/20/20 21:59 Q24H22 JAROD Azithromycin 500 mg in 250 mls @ 250 mls/hr 10/17/20 22:00 Zithromax 500 Mg/ 250 Ml Nacl Premix IV 11/16/20 21:59 Q24H22 JAROD Lorazepam 1 mg 10/16/20 22:32 Ativan 2 Mg/1 Ml Vial IV 11/15/20 22:31 Q4H PRN PRN ANXIETY Nicotine 21 mg 10/17/20 08:00 10/17/20 07:50 Nicoderm Cq 21 Mg TOP 11/16/20 07:59 21 mg Q24H JAROD Administration Ondansetron HCl 4 mg 10/16/20 22:32 Zofran 4 Mg/2 Ml Vial IV 11/15/20 22:31 Q6H PRN PRN NAUSEA/VOMITING Discontinued Medications Generic Name Dose Route Start Last Admin Trade Name Cheri PRN Reason Stop Dose Admin Hydrocodone Bitart/Acetaminophen 10 ml 10/16/20 17:19 10/16/20 17:41 Hydrocodone-Acetamin 2.5-108/5 Ml Solution PO 10/16/20 17:20 10 ml STAT STA Administration Hydrocodone Bitart/Acetaminophen Confirm 10/16/20 17:30 Hydrocodone-Acetamin 2.5-108/5 Ml Solution Administered 10/16/20 17:31 Dose 10 ml .ROUTE .STK-MED ONE Albuterol/Ipratropium Confirm 10/16/20 16:55 Duoneb 0.5-3 Mg/3 Ml Neb Administered 10/16/20 16:56 Dose 3 ml IH .STK-MED ONE Sodium Chloride 1,000 mls @ 100 mls/hr 10/16/20 17:30 10/16/20 17:40 Sodium Chloride 0.9% 1000 Ml IV 11/15/20 17:29 100 mls/hr .Q10H JAROD Administration Ceftriaxone Sodium/Dextrose 1 g in 50 mls @ 100 mls/hr 10/16/20 20:46 10/16/20 21:35 Rocephin 1 Gm-D5w 50 Ml Bag IV 10/16/20 21:15 Infused STAT STA Infusion Ceftriaxone Sodium/Dextrose Confirm 10/16/20 20:51 Rocephin 1 Gm-D5w 50 Ml Bag Administered 10/16/20 20:52 Dose 1 g in 50 mls @ ud IV .STK-MED ONE Sodium Chloride Confirm 10/16/20 17:30 Sodium Chloride 0.9% 1000 Ml Administered 10/16/20 17:31 Dose 1,000 mls @ ud .ROUTE .STK-MED ONE Azithromycin 500 mg in 250 mls @ 250 mls/hr 10/17/20 10:00 10/16/20 22:54 Zithromax 500 Mg/ 250 Ml Nacl Premix IV 11/16/20 09:59 250 mls/hr Q24H10 JAROD Administration Methylprednisolone Sodium Succinate 125 mg 10/16/20 17:17 10/16/20 17:41 Solu-Medrol 125 Mg IV 10/16/20 17:18 125 mg STAT ONE Administration Methylprednisolone Sodium Succinate Confirm 10/16/20 17:30 Solu-Medrol 125 Mg Administered 10/16/20 17:31 Dose 125 mg .ROUTE .STK-MED ONE Sterile Water Confirm 10/16/20 17:30 Sterile H2o 10 Ml Administered 10/16/20 17:31 Dose 10 ml IJ .STK-MED ONE Intake & Output (Last 24 hours) 10/15/20 10/16/20 10/17/2010/18/21 11:59 11:59 11:59 11:59 Intake Total 1452 Balance 1452 Weight 84.9 kg Microbiology Results (Last 24 hours) 10/16/20 20:00 Sputum - Expectorant Gram Stain - Pending 10/16/20 20:00 Sputum - Expectorant Sputum Culture - Pending 10/16/20 17:05 Blood Blood Culture Gram Stain - Pending 10/16/20 17:05 Blood Blood Culture - Pending 10/16/20 17:07 Blood Blood Culture Gram Stain - Pending 10/16/20 17:07 Blood Blood Culture - Pending Laboratory Results (Last 24 hours) 10/17/20 10/17/20 10/17/20 04:50 04:50 04:50 WBC 7.7 RBC 4.17 Hgb 13.4 Hct 40.8 L MCV 97.8 MCH 32.1 H MCHC 32.8 RDW 12.7 Plt Count 191 MPV 9.8 Gran % 88.8 H Eos # (Auto) 0 Absolute Lymphs (auto) 0.28 L Absolute Monos (auto) 0.59 Lymphocytes % 3.6 L Monocytes % 7.6 Eosinophils % 0.0 Basophils % 0.0 Absolute Granulocytes 6.86 Segmented Neutrophils Band Neutrophils Lymphocytes (Manual) Monocytes (Manual) Basophils # 0 Platelet Estimate RBC Morphology Poikilocytosis Anisocytosis D-Dimer Sodium 134 L Potassium 4.0 Chloride 97 L Carbon Dioxide 26 Anion Gap 14.5 BUN 15 Creatinine 0.73 Estimated GFR > 60.0 Glucose 170 H Lactic Acid Calcium 9.1 Magnesium Total Bilirubin 0.30 AST 31 ALT 19 Alkaline Phosphatase 62 Troponin I 0.019 NT-Pro-B Natriuret Pep Serum Total Protein 6.4 Albumin 3.6 Ethyl Alcohol SARS-CoV-2 (PCR) Slides for Path Review YES 10/17/20 10/16/20 10/16/20 02:58 23:30 20:50 WBC RBC Hgb Hct MCV MCH MCHC RDW Plt Count MPV Gran % Eos # (Auto) Absolute Lymphs (auto) Absolute Monos (auto) Lymphocytes % Monocytes % Eosinophils % Basophils % Absolute Granulocytes Segmented Neutrophils Band Neutrophils Lymphocytes (Manual) Monocytes (Manual) Basophils # Platelet Estimate RBC Morphology Poikilocytosis Anisocytosis D-Dimer Sodium Potassium Chloride Carbon Dioxide Anion Gap BUN Creatinine Estimated GFR Glucose Lactic Acid Calcium Magnesium Total Bilirubin AST ALT Alkaline Phosphatase Troponin I 0.021 0.027 NT-Pro-B Natriuret Pep Serum Total Protein Albumin Ethyl Alcohol SARS-CoV-2 (PCR) NEGATIVE Slides for Path Review 10/16/20 10/16/20 10/16/20 19:55 19:32 17:21 WBC RBC Hgb Hct MCV MCH MCHC RDW Plt Count MPV Gran % Eos # (Auto) Absolute Lymphs (auto) Absolute Monos (auto) Lymphocytes % Monocytes % Eosinophils % Basophils % Absolute Granulocytes Segmented Neutrophils Band Neutrophils Lymphocytes (Manual) Monocytes (Manual) Basophils # Platelet Estimate RBC Morphology Poikilocytosis Anisocytosis D-Dimer Sodium Potassium Chloride Carbon Dioxide Anion Gap BUN Creatinine Estimated GFR Glucose Lactic Acid 1.2 2.2 H Calcium Magnesium Total Bilirubin AST ALT Alkaline Phosphatase Troponin I 0.036 H* NT-Pro-B Natriuret Pep Serum Total Protein Albumin Ethyl Alcohol SARS-CoV-2 (PCR) Slides for Path Review 10/16/20 10/16/20 10/16/20 17:05 17:05 17:05 WBC RBC Hgb Hct MCV MCH MCHC RDW Plt Count MPV Gran % Eos # (Auto) Absolute Lymphs (auto) Absolute Monos (auto) Lymphocytes % Monocytes % Eosinophils % Basophils % Absolute Granulocytes Segmented Neutrophils Band Neutrophils Lymphocytes (Manual) Monocytes (Manual) Basophils # Platelet Estimate RBC Morphology Poikilocytosis Anisocytosis D-Dimer 1401 H* Sodium Potassium Chloride Carbon Dioxide Anion Gap BUN Creatinine Estimated GFR Glucose Lactic Acid Calcium Magnesium Total Bilirubin AST ALT Alkaline Phosphatase Troponin I 0.017 NT-Pro-B Natriuret Pep Serum Total Protein Albumin Ethyl Alcohol < 10 SARS-CoV-2 (PCR) Slides for Path Review 10/16/20 10/16/20 17:05 17:05 WBC 10.0 RBC 4.67 Hgb 14.9 Hct 44.7 MCV 95.7 MCH 31.9 MCHC 33.3 RDW 13.0 Plt Count 222 MPV 9.9 Gran % Eos # (Auto) Absolute Lymphs (auto) Absolute Monos (auto) Lymphocytes % Monocytes % Eosinophils % Basophils % Absolute Granulocytes Segmented Neutrophils 81 H Band Neutrophils 4 H Lymphocytes (Manual) 6 L Monocytes (Manual) 9 Basophils # Platelet Estimate NORMAL RBC Morphology ABNORMAL Poikilocytosis 1+ Anisocytosis 1+ D-Dimer Sodium 137 Potassium 4.1 Chloride 92 L Carbon Dioxide 22 Anion Gap 26.5 H BUN 14 Creatinine 0.83 Estimated GFR > 60.0 Glucose 142 H Lactic Acid Calcium 9.1 Magnesium 1.6 Total Bilirubin 0.70 AST 34 ALT 19 Alkaline Phosphatase 79 Troponin I NT-Pro-B Natriuret Pep 104 Serum Total Protein 7.9 Albumin 4.5 Ethyl Alcohol SARS-CoV-2 (PCR) Slides for Path Review Orders (Last 24 hours) Category Date Time Status Bedrest TOLERATED Activity 10/16/20 22:32 Active Town Clerk STAT Care 10/16/20 17:18 Completed Code Status Order ROUTINE Care 10/16/20 22:32 Active EKG-ER Only STAT Care 10/16/20 17:17 Completed IV Insertion STAT Care 10/16/20 17:17 Completed IV Insertion-2nd Peripheral STAT Care 10/16/20 17:23 Completed Oxygen-ED Only Nasal Cannula 3 lpm Care 10/16/20 17:[address] in Observation ROUTINE Care 10/16/20 22:32 Active Pulse Oximetry (ED) STAT Care 10/16/20 17:17 Completed Telemetry q6h Care 10/16/20 22:32 Active Weight,Daily 0600 Care 10/16/20 22:32 Active Rn Pool/Discharge Plan ROUTINE Cons 10/16/20 22:44 Active Heart-Healthy Diet Diet 10/16/20 Dinner Active CHEST 1 VIEW (PORTABLE) Stat Exams 10/16/20 17:18 Completed CHEST WITH CONTRAST [CT] Stat Exams 10/16/20 18:25 Completed Alcohol [ETHYL ALCOHOL] Stat Lab 10/16/20 17:05 Completed BLOOD CULTURE Stat Lab 10/16/20 17:05 Received CBC W DIFF AM.LAB Lab 10/17/20 04:50 Completed CBC W DIFF Stat Lab 10/16/20 17:05 Completed CMP AM.LAB Lab 10/17/20 04:50 Completed CMP Stat Lab 10/16/20 17:05 Completed CULTURE,SPUTUM Stat Lab 10/16/20 20:00 Ordered D-DIMER QUANTITATIVE Stat Lab 10/16/20 17:05 Completed Lactic Acid Stat Lab 10/16/20 17:21 Completed Lactic Acid Stat Lab 10/16/20 19:32 Completed MAGNESIUM Stat Lab 10/16/20 17:05 Completed Manual Differential NC Stat Lab 10/16/20 17:05 Completed NT PRO BNP Stat Lab 10/16/20 17:05 Completed SARS-CoV-2 Xpert Express Routine Lab 10/16/20 20:50 Completed TROPONIN Q3H Lab 10/16/20 17:05 Completed TROPONIN Q3H Lab 10/16/20 19:55 Completed TROPONIN Q3H Lab 10/16/20 23:30 Completed TROPONIN Q3H Lab 10/17/20 02:58 Completed TROPONIN Q3H Lab 10/17/20 04:50 Completed Acetaminophen 325 mg [Tylenol 325 mg] Med 10/16/20 22:32 Active 650 mg PO Q4H PRN PRN Albuterol 2.5 mg/3 ml Neb [Proventil 2.5 mg/3 ml Neb Med 10/16/20 23:33 Active ] 2.5 mg IH Q4H PRN PRN Albuterol/Ipratropium 3ml Neb* [DUONEB 0.5-3 MG/3 ml Med 10/16/20 16:55 Discontinued Neb] 3 ml IH .STK-MED ONE Azithromycin 500 mg/250 ml [Zithromax 500 MG/ 250 ML Med 10/17/20 10:00 Discontinued NaCl Premix] 500 mg in 250 ml IV Q24H10 Azithromycin 500 mg/250 ml [Zithromax 500 MG/ 250 ML Med 10/17/20 22:00 Active NaCl Premix] 500 mg in 250 ml IV Q24H22 Ceftriaxone 1 GM/50 ML PREMIX* [ROCEPHIN 1 Gm-D5w 50 ml Med 10/17/20 22:00 Active Bag] 1 g in 50 ml IV Q24H22 Ceftriaxone 1 GM/50 ML PREMIX* [ROCEPHIN 1 Gm-D5w 50 ml Med 10/16/20 20:46 Discontinued Bag] 1 g in 50 ml IV STAT Ceftriaxone 1 GM/50 ML PREMIX* [ROCEPHIN 1 Gm-D5w 50 ml Med 10/16/20 20:51 Discontinued Bag] 1 g in 50 ml IV UD Hydrocodone/Acetaminophen [Hydrocodone-Acetamin 2.5-108 Med 10/16/20 17:30 Discontinued /5 ml Solution] 10 ml .ROUTE .STK-MED ONE Hydrocodone/Acetaminophen [Hydrocodone-Acetamin 2.5-108 Med 10/16/20 17:19 Discontinued /5 ml Solution] 10 ml PO STAT STA Lorazepam 2 mg/1 ml [Ativan 2 MG/1 ML VIAL] Med 10/16/20 22:32 Active 1 mg IV Q4H PRN PRN Methylprednis Sod Succ 125 mg* [solu-MEDROL 125 MG] Med 10/16/20 17:30 Discontinued 125 mg .ROUTE .STK-MED ONE Methylprednis Sod Succ 125 mg* [solu-MEDROL 125 MG] Med 10/16/20 17:17 Discontinued 125 mg IV STAT ONE NaCl 0.9% 1000 ml [Sodium Chloride 0.9% 1000 ML] 1,000 Med 10/16/20 17:30 Discontinued ml .ROUTE UD NaCl 0.9% 1000 ml [Sodium Chloride 0.9% 1000 ML] 1,000 Med 10/16/20 17:30 Discontinued ml IV 100 mls/hr NaCl 0.9% 1000 ml [Sodium Chloride 0.9% 1000 ML] 1,000 Med 10/16/20 22:32 Active ml IV 50 mls/hr Nicotine 21 mg [Nicoderm CQ 21 MG] Med 10/17/20 08:00 Active 21 mg TOP Q24H Ondansetron HCl 4 mg/2 ml [Zofran 4 MG/2 ML VIAL] Med 10/16/20 22:32 Active 4 mg IV Q6H PRN PRN Water For Injection,Sterile [Sterile H2O 10 ml] Med 10/16/20 17:30 Discontinued 10 ml IJ .STK-MED ONE Oxygen Nasal Cannula 4 lpm RT 10/16/20 23:37 Active Pulse Oximetry .spot check RT 10/16/20 22:32 Active Respiratory Therapy Assessment DAILY RT 10/16/20 17:13 Active Respiratory Therapy Consult ROUTINE RT 10/16/20 22:32 Completed Patient Care Notes (Last 24 hours) 10/17/20 10:43 Nursing Note by Vilma Mata Pt frequently with his N/C off. Noted before pt's shower his SPO2 was (2 % on room air , After showering 91% on room air without c/o. Initialized on 10/17/20 10:43 - END OF NOTE 10/17/20 10:15 Case Management Note by Kerry Boyle S/W PATIENT ABOUT ALCOHOL USE- HE STATED HE HARDLY DRINKS ANYMORE AND DENIES ANY NEED FOR HELP REGARDING HIS ALCOHOL USE. Initialized on 10/17/20 10:15 - END OF NOTE Code(s): J18.9 - PNEUMONIA, UNSPECIFIED ORGANISM (2) Cough Current Visit: Yes Status: Acute Code(s): R05 - COUGH (3) Hypoxia Current Visit: Yes Status: Acute Code(s): R09.02 - HYPOXEMIA
[2020-10-17 13:19] VITALS: BP 163/89; PULSE 88; O2SAT 92
[2020-10-17] MEDS ORDERED: ROCEPHIN 1 Gm-D5w 50 ml Bag** 1 G/50 ML IVPB IV SCH (22:00)
--- NOTE | 2020-10-18 20:05 | PCM.DS ---
Discharge Summary Date of Admission: 10/16/20 22:31 Admitting Physician: ROM JOHNSON Primary Care Provider: NO FAMILY DOCTOR Allergies Allergies No Known Drug Allergies Allergy (Verified 10/16/20 17:03) Hospital Summary - Hospital Course Hospital Course: Chief Complaint Diagnosis fever, chills and shortness of breath for 3-4 days Allergies Allergy/AdvReac Type Severity Reaction Status Date / Time No Known Drug Allergies Allergy Verified 10/16/20 17:03 Home Medications Medication Instructions Recorded Confirmed Last Taken Type Fluticasone/Salmeterol * 2 puff IH BIDRT #1 aer.w.adap 10/17/20 Unknown Rx [Advair Hfa Mcg Inhaler] Levofloxacin [Levaquin] 500 mg PO DAILY 7 Days #7 tablet 10/17/20 Unknown Rx Current Medications Discontinued Medications Generic Name Dose Route Start Last Admin Trade Name Freq PRN Reason Stop Dose Admin Acetaminophen 650 mg 10/16/20 22:32 10/17/20 11:53 Tylenol 325 Mg PO 11/15/20 22:31 650 mg Q4H PRN PRN Administration PAIN, FEVER, HEADACHE Hydrocodone Bitart/Acetaminophen 10 ml 10/16/20 17:19 10/16/20 17:41 Hydrocodone-Acetamin 2.5-108/5 Ml Solution PO 10/16/20 17:20 10 ml STAT STA Administration Hydrocodone Bitart/Acetaminophen Confirm 10/16/20 17:30 Hydrocodone-Acetamin 2.5-108/5 Ml Solution Administered 10/16/20 17:31 Dose 10 ml .ROUTE .STK-MED ONE Albuterol Sulfate 2.5 mg 10/16/20 23:33 10/17/20 11:15 Proventil 2.5 Mg/3 Ml Neb IH 11/15/20 23:32 2.5 mg Q4H PRN PRN Administration SHORTNESS OF BREATH/WHEEZING Albuterol/Ipratropium Confirm 10/16/20 16:55 Duoneb 0.5-3 Mg/3 Ml Neb Administered 10/16/20 16:56 Dose 3 ml IH .STK-MED ONE Sodium Chloride 1,000 mls @ 100 mls/hr 10/16/20 17:30 10/16/20 17:40 Sodium Chloride 0.9% 1000 Ml IV 11/15/20 17:29 100 mls/hr .Q10H JAROD Administration Ceftriaxone Sodium/Dextrose 1 g in 50 mls @ 100 mls/hr 10/16/20 20:46 10/16/20 21:35 Rocephin 1 Gm-D5w 50 Ml Bag IV 10/16/20 21:15 Infused STAT STA Infusion Ceftriaxone Sodium/Dextrose Confirm 10/16/20 20:51 Rocephin 1 Gm-D5w 50 Ml Bag Administered 10/16/20 20:52 Dose 1 g in 50 mls @ ud IV .STK-MED ONE Sodium Chloride Confirm 10/16/20 17:30 Sodium Chloride 0.9% 1000 Ml Administered 10/16/20 17:31 Dose 1,000 mls @ ud .ROUTE .STK-MED ONE Sodium Chloride 1,000 mls @ 50 mls/hr 10/16/20 22:32 10/17/20 09:03 Sodium Chloride 0.9% 1000 Ml IV 11/15/20 22:31 50 mls/hr .Q20H JAROD Administration Ceftriaxone Sodium/Dextrose 1 g in 50 mls @ 100 mls/hr 10/17/20 22:00 Rocephin 1 Gm-D5w 50 Ml Bag IV 10/20/20 21:59 Q24H22 JAROD Azithromycin 500 mg in 250 mls @ 250 mls/hr 10/17/20 10:00 10/16/20 22:54 Zithromax 500 Mg/ 250 Ml Nacl Premix IV 11/16/20 09:59 250 mls/hr Q24H10 JAROD Administration Azithromycin 500 mg in 250 mls @ 250 mls/hr 10/17/20 22:00 Zithromax 500 Mg/ 250 Ml Nacl Premix IV 11/16/20 21:59 Q24H22 JAROD Lorazepam 1 mg 10/16/20 22:32 Ativan 2 Mg/1 Ml Vial IV 11/15/20 22:31 Q4H PRN PRN ANXIETY Methylprednisolone Sodium Succinate 125 mg 10/16/20 17:17 10/16/20 17:41 Solu-Medrol 125 Mg IV 10/16/20 17:18 125 mg STAT ONE Administration Methylprednisolone Sodium Succinate Confirm 10/16/20 17:30 Solu-Medrol 125 Mg Administered 10/16/20 17:31 Dose 125 mg .ROUTE .STK-MED ONE Nicotine 21 mg 10/17/20 08:00 10/17/20 07:50 Nicoderm Cq 21 Mg TOP 11/16/20 07:59 21 mg Q24H JAROD Administration Ondansetron HCl 4 mg 10/16/20 22:32 Zofran 4 Mg/2 Ml Vial IV 11/15/20 22:31 Q6H PRN PRN NAUSEA/VOMITING Sterile Water Confirm 10/16/20 17:30 Sterile H2o 10 Ml Administered 10/16/20 17:31 Dose 10 ml IJ .STK-MED ONE Intake & Output (Last 24 hours) 10/16/20 10/17/20 10/18/20 10/19/20 11:59 11:59 11:59 11:59 Intake Total 1452 360 Balance 1452 360 Weight 84.9 kg Microbiology Results (Last 24 hours) 10/16/20 17:05 Blood Blood Culture Gram Stain - Pending 10/16/20 17:05 Blood Blood Culture - Preliminary NO GROWTH TO DATE Orders (Last 24 hours) Category Date Time Status Azithromycin 500 mg/250 ml [Zithromax 500 MG/ 250 ML Med 10/17/20 22:00 Discontinued NaCl Premix] 500 mg in 250 ml IV Q24H22 Ceftriaxone 1 GM/50 ML PREMIX* [ROCEPHIN 1 Gm-D5w 50 ml Med 10/17/20 22:00 Discontinued Bag] 1 g in 50 ml IV Q24H22 - Vitals & Intake/Output Vital Signs: Vital Signs Temperature 99.4 F 10/17/20 12:00 Pulse Rate 88 10/17/20 12:00 Respiratory Rate 18 10/17/20 12:00 Blood Pressure 163/89 10/17/20 12:00 O2 Sat by Pulse Oximetry 92 L 10/17/20 12:00 Intake & Output: Intake & Output 10/16/20 10/17/20 10/18/20 10/19/20 11:59 11:59 11:59 11:59 Intake Total 1452 360 Balance 1452 360 Weight 84.9 kg - Lab Result Diagrams: 10/17/20 04:50 10/17/20 04:50 Micro Results-Entire Visit: Microbiology 10/16/20 17:05 Blood Culture - Preliminary Blood NO GROWTH TO DATE - Procedures and Test Procedures and Tests throughout Hospitalization: Therapy Orders & Screens 10/16/20 17:13 Respiratory Therapy Assessment DAILY Comment: 10/16/20 22:32 Respiratory Therapy Consult ROUTINE Comment: Reason For Exam: 10/16/20 23:37 Oxygen Nasal Cannula 4 lpm Comment: Diagnosis: hypoxia Discharge Exam General Appearance: no apparent distress, alert Neurologic Exam: alert, oriented x 3, cooperative, normal mood/affect, nml cerebellar function, sensation nml, No motor deficits Eye Exam: PERRL, EOMI, eyes nml inspection Ears, Nose, Throat Exam: normal ENT inspection, pharynx normal, moist mucous membranes Neck Exam: normal inspection, non-tender, supple, full range of motion Respiratory Exam: normal breath sounds, lungs clear, No respiratory distress Cardiovascular Exam: regular rate/rhythm, normal heart sounds Gastrointestinal/Abdomen Exam: soft, No tenderness, No mass Male Genitalia Exam: deferred Rectal Exam: deferred Back Exam: normal inspection, normal range of motion, No CVA tenderness, No vertebral tenderness Extremity Exam: normal inspection, normal range of motion Skin Exam: normal color, warm, dry Final Diagnosis/Problem List - Final Discharge Diagnosis/Problem (1) Pneumonia Status: Resolved Code(s): J18.9 - PNEUMONIA, UNSPECIFIED ORGANISM (2) Cough Status: Resolved Code(s): R05 - COUGH (3) Hypoxia Status: Resolved Code(s): R09.02 - HYPOXEMIA - Discharge Discharge Date: 10/17/20 Disposition: Home, Self-Care Condition: Stable Prescriptions: New Fluticasone/Salmeterol 115/21* [Advair Hfa 115/21 Mcg Inhaler] 2 puff IH BIDRT #1 aer.w.adap Levofloxacin [Levaquin] 500 mg PO DAILY 7 Days #7 tablet Instructions: Pneumonia in Adults Additional Instructions: FINISH THE MEDICAID PROCESS DETAILED ON PAPERWORK GIVEN TO YOU. IF YOU NEED ASSISTANCE YOU CAN CONTACT STEPHANIE GLYNN AT [phone] Follow up with: ROM JOHNSON MD [ACTIVE STAFF] - 10/25/20 11:00 am Forms: Discharge Instructions
== END 2020-10-17 14:55 | disposition home or self-care (01) ==
LOC: ED 16:52 → MED SURG 22:31
PROVIDERS: ADMIT General Practice; ATTEND General Practice
DX: J18.9 Pneumonia, unspecified organism (principal); R07.9 Chest pain, unspecified; F17.200 Nicotine dependence, unspecified, uncomplicated; R05 Cough; R09.02 Hypoxemia; Z20.828 Contact with and (suspected) exposure to other viral communicable diseases
CPT/HCPCS: 36000; 36415; 71045; 71260; 80053; 80307; 83605; 83735; 83880; 84484; 85025; 85379; 87040; 87070; 87077; 93005; 93041; 93268; 94640; 94760; 96374; 99285; G0378; U0003; J0456; J0696; J2930; J7609; A9270-GY; G0480

== ENCOUNTER 2022-11-14 20:59 | Observation (INO) | payer MEDICAID ==
[2022-11-14] MEDS ORDERED: Sodium Chloride 0.9% 1000 ML 1,000 ML IV STA (21:18)
--- NOTE | 2022-11-14 21:21 | ERPHSYRPT ---
- History of Present Illness Source: patient, EMS Exam Limitations: no limitations Patient Subjective Stated Complaint: pt states earlier today he had an episode where he felt a strange feeling from up his legs and got lightheaded. states he has been feeling unswell since. denies chest pain or pressure Triage Nursing Assessment: pt alert and oriented, answers questions approp. pt arrive per ambulance and transfers to stretcher per self. skin warm and dry. respirations nonlabored. pupils equal and reactive. bilat upper and lower ext strength equal and wnl. no facial droop noted. Hx Tetanus, Diphtheria Vaccination/Date Given: No (unsure) Hx Influenza Vaccination/Date Given: No Hx Pneumococcal Vaccination/Date Given: No Immunizations Up to Date: No <DORIS HARDEN - Last Filed: 11/15/22 06:49> <ROM JOHNSON - Last Filed: 11/15/22 08:06> - History of Present Illness Time Seen by Provider: 11/14/22 21:01 Physician History: 61 years old male with a history of hypertension noncompliant with medications presented in the ER via EMS with chief complaint of sudden onset funny feeling starting from both feet traveling up and started to feel dizzy/lightheaded prior to arrival when he was walking. Patient reports she has been walking all day long in the hot and probably got heat exhausted. Denies any chest pain palpitations or shortness of breath. Denies any focal numbness tingling or weakness. It lasted for few minutes and got wobbly, improved back to his baseline prior to arrival in the ER. Patient denies any visual disturbance. Patient does report he did not eat all day long and has been walking, is probably hungry. Denies any associated nausea or vomiting. (DORIS HARDEN) Allergies/Adverse Reactions: No Known Drug Allergies Allergy (Verified 11/14/22 21:18) Travel Risk - International Travel Have you traveled outside of the country in past 3 weeks: No - Coronavirus Screening Are you exhibiting any of the following symptoms?: No Close contact with a COVID-19 positive Pt in past 14-21 Days: No - Vaccine Status Have you recieved a Covid-19 vaccination: No <DORIS HARDEN - Last Filed: 11/15/22 06:49> - Review of Systems Constitutional: Fatigue, Weakness Eyes: No Symptoms Ears, Nose, & Throat: No Symptoms Respiratory: No Symptoms Cardiac: No Symptoms Abdominal/Gastrointestinal: No Symptoms Genitourinary Symptoms: No Symptoms Musculoskeletal: No Symptoms Skin: No Symptoms Neurological: Dizziness Psychological: No Symptoms Endocrine: No Symptoms Hematologic/Lymphatic: No Symptoms Immunological/Allergic: No Symptoms <FINADORIS Last Filed: 11/15/22 06:49> - Past Medical History Pertinent Past Medical History: No Neurological History: No Pertinent History ENT History: No Pertinent History Cardiac History: Hypertension Respiratory History: No Pertinent History Endocrine Medical History: No Pertinent History Musculoskeletal History: No Pertinent History GI Medical History: No Pertinent History History: No Pertinent History Psycho-Social History: No Pertinent History Male Reproductive Disorders: No Pertinent History Other Medical History: does not treat htn-states he has not insurance - Past Surgical History Past Surgical History: Yes Neuro Surgical History: No Pertinent History Cardiac: No Pertinent History Respiratory: No Pertinent History Gastrointestinal: No Pertinent History Genitourinary: No Pertinent History Musculoskeletal: No Pertinent History Male Surgical History: No Pertinent History - Social History Smoking Status: Current every day smoker How long have you smoked: years Exposure to second hand smoke: No Drug Use: none Patient Lives Alone: No (staying w/friends) <FINADORIS Last Filed: 11/15/22 06:49> - Physical Exam General Appearance: no apparent distress, alert Eye Exam: PERRL/EOMI, eyes nml inspection Ears, Nose, Throat Exam: normal ENT inspection, TMs normal, pharynx normal, moist mucous membranes Neck Exam: normal inspection, non-tender, supple, full range of motion Respiratory Exam: normal breath sounds, lungs clear Cardiovascular Exam: regular rate/rhythm, normal heart sounds Gastrointestinal/Abdomen Exam: soft, normal bowel sounds, No tenderness Back Exam: normal inspection, normal range of motion, No CVA tenderness, No vertebral tenderness Extremity Exam: normal inspection, normal range of motion, pelvis stable Neurologic Exam: alert, oriented x 3, cooperative, recruitment advertising manager II-XII nml as tested, normal mood/affect, nml cerebellar function, nml station & gait, sensation nml, No motor deficits SpO2 Interpretation: normal SpO2: 100 O2 Delivery: Room Air <DORIS HARDEN Last Filed: 11/15/22 06:49> - Nursing Vital Signs Nursing Vital Signs: Initial Vital Signs Temperature 98.8 F 11/14/22 21:02 Pulse Rate 68 11/14/22 21:02 Respiratory Rate 16 11/14/22 21:02 Blood Pressure 182/100 11/14/22 21:02 O2 Sat by Pulse Oximetry 100 11/14/22 21:02 Pain Scale Pain Intensity 0 - Course EKG Interpreted by Me: RATE (71), Sinus Rhythm, NORMAL AXIS, NORMAL INTERVALS, NORMAL QRS <DORIS HARDEN - Last Filed: 11/15/22 06:49> <ROM JOHNSON - Last Filed: 11/15/22 08:06> Ordered Tests: Active Orders 24 hr Category Date Time Status EKG-ER Only STAT Care 11/14/22 21:18 Active IV Insertion STAT Care 11/14/22 21:18 Active Tele-Health Consult ROUTINE Cons 11/15/22 04:19 Active CHEST 1 VIEW (PORTABLE) Stat Exams 11/14/22 21:19 Completed HEAD WITHOUT CONTRAST [CT] Stat Exams 11/15/22 00:02 Completed CBC W DIFF Stat Lab 11/14/22 21:25 Completed CK-Creatinine Phosphokinase Stat Lab 11/14/22 21:25 Completed CMP Stat Lab 11/14/22 21:25 Completed ETHYL ALCOHOL Stat Lab 11/14/22 21:25 Completed Lactic Acid Stat Lab 11/14/22 21:36 Completed MAGNESIUM Stat Lab 11/14/22 21:25 Completed TROPONIN Q4H Lab 11/14/22 21:25 Completed TROPONIN Q4H Lab 11/15/22 01:47 Completed TROPONIN Q4H Lab 11/15/22 05:51 Completed UA W/RFX UR CULTURE Stat Lab 11/14/22 22:56 Completed Urine Triage Profile Stat Lab 11/14/22 22:56 Completed Transfer Order Routine Transfer 11/15/22 Ordered Medication Summary Generic Name Dose Route Start Last Admin Trade Name Freq PRN Reason Stop Dose Admin Aspirin 81 mg 11/15/22 10:00 11/15/22 03:13 Aspirin 81 Mg Tab.Chew PO 12/15/22 09:59 81 mg QAM JAROD Administration Folic Acid 1 mg/ Multivitamins 1,011.2 mls @ 100 mls/hr 11/15/22 08:00 11/15/22 07:59 /Minerals 10 ml/ Thiamine HCl IV 12/15/22 07:59 100 mls/hr 100 mg/ Dextrose/Sodium .Q10H7M JAROD Administration Chloride Discontinued Medications Generic Name Dose Route Start Last Admin Trade Name Cheri PRN Reason Stop Dose Admin Atorvastatin Calcium 40 mg 11/15/22 03:08 11/15/22 03:13 Atorvastatin Calcium 40 Mg Tablet PO 11/15/22 03:09 40 mg STAT STA Administration Atorvastatin Calcium Confirm 11/15/22 03:11 Atorvastatin Calcium 40 Mg Tablet Administered 11/15/22 03:12 Dose 40 mg .ROUTE .STK-MED ONE Sodium Chloride 1,000 mls @ 999 mls/hr 11/14/22 21:18 11/14/22 22:28 Sodium Chloride 0.9% 1000 Ml IV 11/14/22 22:18 Infused .Q1H1M STA Infusion Sodium Chloride Confirm 11/14/22 21:23 Sodium Chloride 0.9% 1000 Ml Administered 11/14/22 21:24 Dose 1,000 mls @ ud .ROUTE .STK-MED ONE Lab/Rad Data: Laboratory Result Diagrams 11/14/22 21:25 11/14/22 21:25 Laboratory Results 11/15/22 11/15/22 11/14/22 Range/Units 05:51 01:47 22:56 WBC (4.0-10.5) x10^3/uL RBC (4.1-5.6) x10^6/uL Hgb (12.5-18.0) g/dL Hct (42-50) % MCV (78-100) fL MCH (26-32) pg MCHC (32-36) g/dL RDW (11.5-14.0) % Plt Count (150-450) x10^3/uL MPV (7.5-11.0) fL Gran % (36.0-66.0) % Immature Gran % (Auto) (0.00-0.4) % Nucleat RBC Rel Count (0.00-0.1) % Eos # (Auto) (0-0.5) x10^3/uL Immature Gran # (Auto) (0.00-0.03) x10^3u/L Absolute Lymphs (auto) (1.0-4.6) x10^3/uL Absolute Monos (auto) (0.0-1.3) x10^3/uL Absolute Nucleated RBC (0.00-0.01) x10^3u/L Lymphocytes % (24.0-44.0) % Monocytes % (0.0-12.0) % Eosinophils % (0.00-5.0) % Basophils % (0.0-0.4) % Absolute Granulocytes (1.4-6.9) x10^3/uL Basophils # (0-0.4) x10^3/uL Sodium (137-145) mmol/L Potassium (3.5-5.1) mmol/L Chloride (98-107) mmol/L Carbon Dioxide (22-30) mmol/L Anion Gap (5-15) MEQ/L BUN (9-20) mg/dL Creatinine (0.66-1.25) mg/dL Estimated GFR ML/MIN Glucose (74-106) mg/dL Lactic Acid (0.4-2.0) Calcium (8.4-10.2) mg/dL Magnesium (1.6-2.3) mg/dL Total Bilirubin (0.2-1.3) mg/dL AST (17-59) U/L ALT (0-50) U/L Alkaline Phosphatase (38-126) U/L Creatine Kinase (55-170) U/L Troponin I 0.015 0.019 (0.000-0.034) ng/mL Serum Total Protein (6.3-8.2) g/dL Albumin (3.5-5.0) g/dL Urine Color (Yellow) Urine Appearance (Clear) Urine pH (4.6-8.0) Ur Specific [place] (1.005-1.030) Urine Protein (Negative) Urine Glucose (UA) (Negative) mg/dL Urine Ketones (Negative) Urine Blood (Negative) Urine Nitrite (Negative) Urine Bilirubin (Negative) Urine Urobilinogen (0.2) mg/dL Ur Leukocyte Esterase (Negative) U Hyaline Cast (Auto) (0-2) /LPF Urine Microscopic RBC (0-5) /HPF Urine Microscopic WBC (0-5) /HPF Ur Epithelial Cells (None Seen) /HPF Urine Bacteria (None Seen) /HPF WBC Casts (NEGATIVE) /LPF Urine Culture Reflexed (NO) Urine Opiates Level NEGATIVE (NEGATIVE) Ur Methadone NEGATIVE (NEGATIVE) Urine Barbiturates NEGATIVE (NEGATIVE) Ur Phencyclidine (PCP) NEGATIVE (NEGATIVE) Urine Amphetamine POSITIVE (NEGATIVE) U Benzodiazepine Level NEGATIVE (NEGATIVE) Urine Cocaine NEGATIVE (NEGATIVE) Urine Marijuana (THC) POSITIVE (NEGATIVE) Ethyl Alcohol (0-10) mg/dL 11/14/22 11/14/22 11/14/22 Range/Units 22:56 21:36 21:25 WBC (4.0-10.5) x10^3/uL RBC (4.1-5.6) x10^6/uL Hgb (12.5-18.0) g/dL Hct (42-50) % MCV (78-100) fL MCH (26-32) pg MCHC (32-36) g/dL RDW (11.5-14.0) % Plt Count (150-450) x10^3/uL MPV (7.5-11.0) fL Gran % (36.0-66.0) % Immature Gran % (Auto) (0.00-0.4) % Nucleat RBC Rel Count (0.00-0.1) % Eos # (Auto) (0-0.5) x10^3/uL Immature Gran # (Auto) (0.00-0.03) x10^3u/L Absolute Lymphs (auto) (1.0-4.6) x10^3/uL Absolute Monos (auto) (0.0-1.3) x10^3/uL Absolute Nucleated RBC (0.00-0.01) x10^3u/L Lymphocytes % (24.0-44.0) % Monocytes % (0.0-12.0) % Eosinophils % (0.00-5.0) % Basophils % (0.0-0.4) % Absolute Granulocytes (1.4-6.9) x10^3/uL Basophils # (0-0.4) x10^3/uL Sodium (137-145) mmol/L Potassium (3.5-5.1) mmol/L Chloride (98-107) mmol/L Carbon Dioxide (22-30) mmol/L Anion Gap (5-15) MEQ/L BUN (9-20) mg/dL Creatinine (0.66-1.25) mg/dL Estimated GFR ML/MIN Glucose (74-106) mg/dL Lactic Acid 1.2 (0.4-2.0) Calcium (8.4-10.2) mg/dL Magnesium (1.6-2.3) mg/dL Total Bilirubin (0.2-1.3) mg/dL AST (17-59) U/L ALT (0-50) U/L Alkaline Phosphatase (38-126) U/L Creatine Kinase (55-170) U/L Troponin I 0.016 (0.000-0.034) ng/mL Serum Total Protein (6.3-8.2) g/dL Albumin (3.5-5.0) g/dL Urine Color Dark Yellow (Yellow) Urine Appearance Clear (Clear) Urine pH 5.0 (4.6-8.0) Ur Specific [place] 1.025 (1.005-1.030) Urine Protein Trace A (Negative) Urine Glucose (UA) Negative (Negative) mg/dL Urine Ketones Negative (Negative) Urine Blood Negative (Negative) Urine Nitrite Negative (Negative) Urine Bilirubin Small A (Negative) Urine Urobilinogen 1.0 A (0.2) mg/dL Ur Leukocyte Esterase Negative (Negative) U Hyaline Cast (Auto) 6-10 A (0-2) /LPF Urine Microscopic RBC 0-2 (0-5) /HPF Urine Microscopic WBC 6-10 A (0-5) /HPF Ur Epithelial Cells Moderate A (None Seen) /HPF Urine Bacteria None Seen (None Seen) /HPF WBC Casts 5-10 (NEGATIVE) /LPF Urine Culture Reflexed NO (NO) Urine Opiates Level (NEGATIVE) Ur Methadone (NEGATIVE) Urine Barbiturates (NEGATIVE) Ur Phencyclidine (PCP) (NEGATIVE) Urine Amphetamine (NEGATIVE) U Benzodiazepine Level (NEGATIVE) Urine Cocaine (NEGATIVE) Urine Marijuana (THC) (NEGATIVE) Ethyl Alcohol (0-10) mg/dL 11/14/22 11/14/22 Range/Units 21:25 21:25 WBC 7.0 (4.0-10.5) x10^3/uL RBC 3.57 L (4.1-5.6) x10^6/uL Hgb 11.9 L (12.5-18.0) g/dL Hct 36.2 L (42-50) % MCV 101.4 H (78-100) fL MCH 33.3 H (26-32) pg MCHC 32.9 (32-36) g/dL RDW 12.7 (11.5-14.0) % Plt Count 282 (150-450) x10^3/uL MPV 8.8 (7.5-11.0) fL Gran % 60.8 (36.0-66.0) % Immature Gran % (Auto) 0.4 (0.00-0.4) % Nucleat RBC Rel Count 0.0 (0.00-0.1) % Eos # (Auto) 0.11 (0-0.5) x10^3/uL Immature Gran # (Auto) 0.03 (0.00-0.03) x10^3u/L Absolute Lymphs (auto) 1.42 (1.0-4.6) x10^3/uL Absolute Monos (auto) 1.12 (0.0-1.3) x10^3/uL Absolute Nucleated RBC 0.00 (0.00-0.01) x10^3u/L Lymphocytes % 20.4 L (24.0-44.0) % Monocytes % 16.1 H (0.0-12.0) % Eosinophils % 1.6 (0.00-5.0) % Basophils % 0.7 (0.0-0.4) % Absolute Granulocytes 4.24 (1.4-6.9) x10^3/uL Basophils # 0.05 (0-0.4) x10^3/uL Sodium 133 L (137-145) mmol/L Potassium 3.4 L (3.5-5.1) mmol/L Chloride 99 (98-107) mmol/L Carbon Dioxide 24 (22-30) mmol/L Anion Gap 13.1 (5-15) MEQ/L BUN 7 L (9-20) mg/dL Creatinine 0.72 (0.66-1.25) mg/dL Estimated GFR > 60.0 ML/MIN Glucose 98 (74-106) mg/dL Lactic Acid (0.4-2.0) Calcium 8.5 (8.4-10.2) mg/dL Magnesium 1.8 (1.6-2.3) mg/dL Total Bilirubin 0.60 (0.2-1.3) mg/dL AST 33 (17-59) U/L ALT 30 (0-50) U/L Alkaline Phosphatase 69 (38-126) U/L Creatine Kinase 299 H (55-170) U/L Troponin I (0.000-0.034) ng/mL Serum Total Protein 6.2 L (6.3-8.2) g/dL Albumin 3.4 L (3.5-5.0) g/dL Urine Color (Yellow) Urine Appearance (Clear) Urine pH (4.6-8.0) Ur Specific [place] (1.005-1.030) Urine Protein (Negative) Urine Glucose (UA) (Negative) mg/dL Urine Ketones (Negative) Urine Blood (Negative) Urine Nitrite (Negative) Urine Bilirubin (Negative) Urine Urobilinogen (0.2) mg/dL Ur Leukocyte Esterase (Negative) U Hyaline Cast (Auto) (0-2) /LPF Urine Microscopic RBC (0-5) /HPF Urine Microscopic WBC (0-5) /HPF Ur Epithelial Cells (None Seen) /HPF Urine Bacteria (None Seen) /HPF WBC Casts (NEGATIVE) /LPF Urine Culture Reflexed (NO) Urine Opiates Level (NEGATIVE) Ur Methadone (NEGATIVE) Urine Barbiturates (NEGATIVE) Ur Phencyclidine (PCP) (NEGATIVE) Urine Amphetamine (NEGATIVE) U Benzodiazepine Level (NEGATIVE) Urine Cocaine (NEGATIVE) Urine Marijuana (THC) (NEGATIVE) Ethyl Alcohol < 10 (0-10) mg/dL CT/HEAD WITHOUT CONTRAST CLINICAL HISTORY:ams COMPARISON:10/05/2019. TECHNIQUE:Axial noncontrast CT scan of the brain was performed from the skull base to the high parietal region. Dose: CTDI 53.92mGy DLP 1044.86 mGy*cm. FINDINGS: There is an asymmetric ill-defined area of hypodensity is seen in the right posterior parietal lobe concerning possible subacute infarct versus extended microvascular ischemic change. Axial series, image 46/71. This is new as compared to the prior exam. Mildly dilated ventricular system. Prominent cisterna magna. Mild bilateral periventricular hypodensities are suggestive of microvascular ischemic changes. The rest of the visualized brain parenchyma shows leal-white matter differentiation. No midline shift. No intracerebral or extra axial hematoma. Normal CT appearance of the posterior fossa structures. The osseous structures in the skull base are unremarkable. No definite calvarium fractures. Scanned paranasal sinuses and mastoid air cells are clear. IMPRESSION: 1. Asymmetric ill-defined hypodensity in the right posterior parietal lobe concerning for possible subacute infarct versus extended microvascular ischemic change, not appreciated in prior study. MRI with DWI sequences is recommended for further analysis. 2. Mild hydrocephalus, unchanged from prior. (ELIZABETH,ROM) - Progress Progress: improved, re-examined Discussed with DrSenait: Sarmad (Specialist on-call tele neurologist at [facility].) Counseled pt/family regarding: lab results, diagnosis, need for follow-up, rad results, smoking cessation <DORIS HARDEN - Last Filed: 11/15/22 06:49> - Progress Discussed with Dr.: Other Will see patient in: hospital (observation) (Tele Hospitalist service), hospital (full admit) <ELIZABETH,ROM - Last Filed: 11/15/22 08:06> - Progress Progress Note: 11/14/22 21:29 61 years old male with a history of hypertension noncompliant with medications presented in the ER via EMS with chief complaint of sudden onset funny feeling starting from both feet traveling up and started to feel dizzy/lightheaded prior to arrival when he was walking. Patient reports she has been walking all day long in the hot and probably got heat exhausted. Denies any chest pain palpitations or shortness of breath. Denies any focal numbness tingling or weakness. It lasted for few minutes and got wobbly, improved back to his baseline prior to arrival in the ER. Patient denies any visual disturbance. Patient does report he did not eat all day long and has been walking, is probably hungry. Denies any associated nausea or vomiting. Patient is asking for dinner. EKG is normal sinus rhythm with no acute ischemic changes. Patient blood pressure is in 180s without any chest pain. Lungs bilateral clear to auscultation. Nonfocal neuro exam. We will give him fluids and will get baseline work-up including CK level. 11/15/22 00:18 Is given fluid bolus, work-up showed normal white count, fairly unremarkable chemistries, CK level of 299. Patient has no UTI. On reevaluation patient is not in any distress but does feel a little confused and does not know how he ended up in the ER. He does not remember what he was doing before he came in here. I would obtain CT head to make sure patient does not have stroke. Urine drug screen is positive for THC and feta means. Patient blood pressure improved without any medications. 11/15/22 01:17 CT head is positive for right posterior parietal subacute stroke versus microvascular changes. Would obtain SOC neurology consult and patient would be admitted after discussion with hospitalist as he needs further evaluation with MRI. Patient is ambulatory in the ER without any limitation. 11/15/22 02:45 Neurology has evaluated patient, recommended aspirin, atorvastatin and further stroke work-up. No MRI services are available at [facility], will call [facility] for transfer. Plan discussed with patient and he agrees with it. 11/15/22 06:50 Spoken with endovascular and general neurologist at [facility], reviewed history, work-up and patient exam, and do not think patient has acute stroke but did agree with obtaining MRI. Hospitalist from [facility] will call. (DORIS HARDEN) Medical Desision Making - Independent Historian Additional History obtained from: EMS - Discussion of managment Care discussed with:: hospitalist Reviewed:: Test results Agreed on:: Treatment plan Will see patient: in hospital - Social Determinants of Health Pt's dx & treatment plan are significantly limited by SDOH: Unemployed, fi nancial hardships, housing insecurity, food insecurity, homelessness - Diagnostic Testing Diagnostic test were ordered, analyzed, and reviewed by me: Yes Radiological Interpretation: Interpreted by me, Reviewed by me - Risk of complications The pt has a mod risk of morbidity or mortality based on: Need for prescription drug management <DORIS HARDEN - Last Filed: 11/15/22 06:49> - Departure Departure Disposition: Observation Critical Care Time: No <DORIS HARDEN - Last Filed: 11/15/22 06:49> - Departure Departure Disposition: Observation Critical Care Time: Yes Critical Care Time(excluding separately billable procedures): Critical 30-74 mins <ROM JOHNSON - Last Filed: 11/15/22 08:06> - Departure Clinical Impression: Uncontrolled hypertension, Substance abuse, Hydrocephalus in adult Heat exhaustion Qualifiers: Encounter type: initial encounter Qualified Code(s): T67.5XXA - Heat exhaustion, unspecified, initial encounter Stroke Qualifiers: CVA mechanism: unspecified Qualified Code(s): I63.9 - Cerebral infarction, unspecified Condition: Fair Referrals: DOCTOR,NO FAMILY [Primary Care Provider] - Follow up/PCP as directed
[2022-11-14] MEDS ORDERED: Sodium Chloride 0.9% 1000 ML 1,000 ML ONE (21:23)
[2022-11-14 21:32] LABS: Absolute Neutrophil Ct (ANC) 4.24 x10^3/uL (1.4-6.9); BASOPHIL % 0.7 % (0.0-0.4); Basophil (Absolute #) 0.05 x10^3/uL (0-0.4); Eosinophil % 1.6 % (0.00-5.0); Eosinophil (Absolute #) 0.11 x10^3/uL (0-0.5); Hematocrit 36.2 % (42-50); Hemoglobin 11.9 g/dL (12.5-18.0); IMMATURE GRAN # 0.03 x10^3u/L (0.00-0.03); IMMATURE GRAN % 0.4 % (0.00-0.4); Lymphocyte (Absolute #) 1.42 x10^3/uL (1.0-4.6); Lymphocytes % 20.4 % (24.0-44.0); Mean Cell Volume 101.4 fL (78-100); Mean Corpuscular Hemoglobin 33.3 pg (26-32); Mean Corpuscular Hgb Concent. 32.9 g/dL (32-36); Mean Platelet Volume 8.8 fL (7.5-11.0); Monocyte (Absolute #) 1.12 x10^3/uL (0.0-1.3); Monocytes % 16.1 % (0.0-12.0); Neutrophil % 60.8 % (36.0-66.0); Platelet Count 282 x10^3/uL (150-450); Red Blood Count 3.57 x10^6/uL (4.1-5.6); Red Cell Distribution Width 12.7 % (11.5-14.0)
[2022-11-14 21:51] LABS: ALBUMIN 3.4 g/dL (3.5-5.0); ALKALINE PHOSPHATASE 69 U/L (38-126); ANION GAP 13.1 MEQ/L (5-15); BLOOD UREA NITROGEN 7 mg/dL (9-20); CHLORIDE 99 mmol/L (98-107); CK-Creatinine Phosphokinase 299 U/L (55-170); Calcium 8.5 mg/dL (8.4-10.2); Carbon Dioxide 24 mmol/L (22-30); Creatinine 1 0.72 mg/dL (0.66-1.25); EST GLOMERULAR FILTRATION RATE > 60.0 ML/MIN; ETHYL ALCOHOL < 10 mg/dL (0-10); Glucose 98 mg/dL (74-106); MAGNESIUM 1.8 mg/dL (1.6-2.3); Potassium 3.4 mmol/L (3.5-5.1); SGOT/AST 33 U/L (17-59); SGPT/ALT 30 U/L (0-50); SODIUM 133 mmol/L (137-145); Total Protein 6.2 g/dL (6.3-8.2)
[2022-11-14 23:44] LABS: Appearance Clear (Clear); Bacteria None Seen /HPF (None Seen); Bilirubin Small (Negative); Blood Negative (Negative); Epithelial Cells Moderate /HPF (None Seen); Glucose, Urine Negative (Negative); Ketones Negative (Negative); Leukocyte Esterase Negative (Negative); Nitrite Negative (Negative); Protein,Urine Dip Trace (Negative); RBC 0-2 /HPF (0-5); Specific Gravity 1.025 (1.005-1.030)
[2022-11-14 23:56] LABS: Barbiturate,Urine NEGATIVE (NEGATIVE); Benzodiazepine,Urine NEGATIVE (NEGATIVE); Cocaine,Urine NEGATIVE (NEGATIVE); Methadone,Urine NEGATIVE (NEGATIVE); Opiate,Urine NEGATIVE (NEGATIVE); PCP,Urine NEGATIVE (NEGATIVE); THC,Urine POSITIVE (NEGATIVE)
[2022-11-15 00:07] LABS: ADD URINE CULTURE? NO (NO)
[2022-11-15 00:16] LABS: Amphetamine,Urine POSITIVE (NEGATIVE)
--- NOTE | 2022-11-15 01:13 | XRAY ---
CLINICAL HISTORY:ams COMPARISON:10/05/2019. TECHNIQUE:Axial noncontrast CT scan of the brain was performed from the skull base to the high parietal region. Dose: CTDI 53.92mGy DLP 1044.86 mGy*cm. FINDINGS: There is an asymmetric ill-defined area of hypodensity is seen in the right posterior parietal lobe concerning possible subacute infarct versus extended microvascular ischemic change. Axial series, image 46/71. This is new as compared to the prior exam. Mildly dilated ventricular system. Prominent cisterna magna. Mild bilateral periventricular hypodensities are suggestive of microvascular ischemic changes. The rest of the visualized brain parenchyma shows leal-white matter differentiation. No midline shift. No intracerebral or extra axial hematoma. Normal CT appearance of the posterior fossa structures. The osseous structures in the skull base are unremarkable. No definite calvarium fractures. Scanned paranasal sinuses and mastoid air cells are clear. IMPRESSION: 1. Asymmetric ill-defined hypodensity in the right posterior parietal lobe concerning for possible subacute infarct versus extended microvascular ischemic change, not appreciated in prior study. MRI with DWI sequences is recommended for further analysis. 2. Mild hydrocephalus, unchanged from prior. [facility] was called at [phone] at 12: 07 am LOAN CLERK on 11/15/2022, and results were verbally communicated to Dr. Cruz. Electronically Signed by: Abe Morrison MD. (11/15/2022 00:12:16 LOAN CLERK)
[2022-11-15] MEDS ORDERED: LIPITOR 40MG PO STA (03:08)
[2022-11-15] MEDS ORDERED: LIPITOR 40MG ONE (03:11)
--- NOTE | 2022-11-15 06:51 | XRAY ---
Indication: Weakness. Comparison: October 16, 2020 Portable chest again hyperinflated with small right upper lobe calcified granuloma. No focal infiltrate, consolidation, or large effusion. Heart not enlarged. Bony thorax intact again with mild degenerative changes. Impression: Nonacute chest with chronic features.
[2022-11-15] MEDS ORDERED: FOLNATE IV SCH ×4 (08:00)
[2022-11-15] MEDS ORDERED: [UNRECOGNIZED DRUG - OTHER] IV SCH ×4 (08:00)
[2022-11-15] MEDS ORDERED: VITAMINS FOR INFUSION IV SCH ×4 (08:00)
[2022-11-15] MEDS ORDERED: Zofran 4 MG/2 ML VIAL IV PRN (08:33)
[2022-11-15] MEDS: ROCEPHIN 1 Gm-D5w 50 ml Bag** 1 G/50 ML IVPB IV SCH (09:50)
[2022-11-15] MEDS ORDERED: BABY ASPIRIN 81 MG CHEW PO SCH (10:00)
[2022-11-15 10:25] LABS: Hematocrit 38.1 % (42-50); Hemoglobin 12.6 g/dL (12.5-18.0); Mean Cell Volume 101.9 fL (78-100); Mean Corpuscular Hemoglobin 33.7 pg (26-32); Mean Corpuscular Hgb Concent. 33.1 g/dL (32-36); Mean Platelet Volume 8.8 fL (7.5-11.0); Platelet Count 262 x10^3/uL (150-450); Red Blood Count 3.74 x10^6/uL (4.1-5.6); Red Cell Distribution Width 12.8 % (11.5-14.0); White Blood Count 5.4 x10^3/uL (4.0-10.5)
[2022-11-15 10:40] LABS: INR 0.97 (0.8-3.0); PROTIME 10.6 SECONDS (9.4-12.5); PTT 28.6 SECONDS (25.1-36.5)
[2022-11-15] MEDS: Ativan 2 MG/1 ML VIAL IV PRN (12:26)
[2022-11-15] MEDS ORDERED: Klor Con PO ONE (13:48)
[2022-11-15] MEDS: Dextrose 5%-Lr IV Solution 1000 ML 1,000 ML IV SCH (18:10)
[2022-11-16] MEDS: Dextrose 5%-Lr IV Solution 1000 ML 1,000 ML IV SCH ×2 (02:58→12:54)
[2022-11-16 05:42] LABS: Absolute Neutrophil Ct (ANC) 4.19 x10^3/uL (1.4-6.9); BASOPHIL % 0.5 % (0.0-0.4); Basophil (Absolute #) 0.03 x10^3/uL (0-0.4); Eosinophil % 2.3 % (0.00-5.0); Eosinophil (Absolute #) 0.15 x10^3/uL (0-0.5); Hematocrit 37.7 % (42-50); Hemoglobin 12.6 g/dL (12.5-18.0); IMMATURE GRAN # 0.03 x10^3u/L (0.00-0.03); IMMATURE GRAN % 0.5 % (0.00-0.4); Lymphocyte (Absolute #) 1.34 x10^3/uL (1.0-4.6); Mean Cell Volume 101.3 fL (78-100); Mean Corpuscular Hemoglobin 33.9 pg (26-32); Mean Corpuscular Hgb Concent. 33.4 g/dL (32-36); Mean Platelet Volume 9.4 fL (7.5-11.0); Monocyte (Absolute #) 0.65 x10^3/uL (0.0-1.3); Monocytes % 10.2 % (0.0-12.0); Neutrophil % 65.5 % (36.0-66.0); Platelet Count 256 x10^3/uL (150-450); Red Blood Count 3.72 x10^6/uL (4.1-5.6); Red Cell Distribution Width 12.9 % (11.5-14.0); White Blood Count 6.4 x10^3/uL (4.0-10.5)
[2022-11-16 05:58] LABS: ALBUMIN 2.9 g/dL (3.5-5.0); ALKALINE PHOSPHATASE 71 U/L (38-126); ANION GAP 10.1 MEQ/L (5-15); BLOOD UREA NITROGEN 6 mg/dL (9-20); CHLORIDE 105 mmol/L (98-107); Calcium 7.6 mg/dL (8.4-10.2); Carbon Dioxide 23 mmol/L (22-30); Creatinine 1 0.63 mg/dL (0.66-1.25); EST GLOMERULAR FILTRATION RATE > 60.0 ML/MIN; Glucose 161 mg/dL (74-106); Potassium 3.8 mmol/L (3.5-5.1); SGOT/AST 22 U/L (17-59); SGPT/ALT 24 U/L (0-50); SODIUM 134 mmol/L (137-145); Total Protein 5.5 g/dL (6.3-8.2)
--- NOTE | 2022-11-16 07:35 | PCM.HP ---
History of Present Illness - Chief Complaint Chief Complaint: CONFUSION, SUBACUTE STROKE Date: 11/15/22 History of Present Illness: is a 61 year old male. History of stroke; uncontrolled hypertension, alcoholism, poly substance abuse, admitted after describing feeling ill and dizzy followed by altered sensation in the lower body traveling up the body. initial aork up unremarkable except for CT scan that showed density concerning for bleed - chronicity unknown: Patient was a little confused on admission in the context of beig inebriated and the new CT finding - this raised concern that patient may need more tissue specific i,aging in the form of an MRI with plan for imaging on Thursday. He denies chest pain or shortness of breath; is tired; and does have some dizziness: Does have falls; but cannot say when last fall was: Not adeequate historian; no anticoagulants on board - Review of Systems Ears, Nose, & Throat: No Symptoms Respiratory: No Symptoms Cardiac: No Symptoms Abdominal/Gastrointestinal: Abdominal Pain Genitourinary Symptoms: No Symptoms Musculoskeletal: Fall Skin: No Symptoms Neurological: Dizziness Medications & Allergies Home Medications: Home Medication List No Reportable Medications [No Reported Medications] 11/15/22 [History Confirmed 11/15/22] Allergies/Adverse Reactions: Allergies Allergy/AdvReac Type Severity Reaction Status Date / Time No Known Drug Allergies Allergy Verified 11/14/22 21:18 - Past Medical History Past Medical History: Yes Neurological History: No Pertinent History ENT History: No Pertinent History Cardiac History: Hypertension Respiratory History: No Pertinent History Endocrine Medical History: No Pertinent History Musculoskelatal History: No Pertinent History GI Medical History: No Pertinent History History: No Pertinent History Pyscho-Social History: No Pertinent History Male Reproductive Disorders: No Pertinent History Comment: does not treat htn-states he has no insurance - Past Surgical History Past Surgical History: Yes Neuro Surgical History: No Pertinent History Cardiac History: No Pertinent History Respiratory Surgery: No Pertinent History GI Surgical History: No Pertinent History Genitourinary Surgical Hx: No Pertinent History Musculskeletal Surgical Hx: No Pertinent History Male Surgical History: No Pertinent History - Social History Smoking Status: Current every day smoker How long have you smoked: years Exposure to second hand smoke: No Alcohol: Daily Drug Use: none - Physical Exam Vital Signs: Vital Signs - 24 hr Temp Pulse Resp BP BP Pulse Ox 11/16/22 07:22 98.2 F 64 18 173/78 95 11/16/22 04:00 97.5 F 65 18 140/58 95 11/16/22 00:00 66 16 11/15/22 20:00 97.9 F 68 18 133/90 94 L 11/15/22 16:30 57 L 11/15/22 16:00 95 11/15/22 15:59 97 H 20 95 11/15/22 15:51 97.9 F 57 L 16 124/73 95 11/15/22 12:26 65 21 110/72 11/15/22 11:32 97.8 F 56 L 17 110/72 97 11/15/22 08:57 97.7 F 65 19 143/71 95 11/15/22 08:26 97.7 F 65 19 143/71 95 11/15/22 08:00 52 L 13 126/77 98 General Appearance: no apparent distress, lethargy Neurologic Exam: alert Neck Exam: normal inspection Cardiovascular Exam: regular rate/rhythm Gastrointestinal/Abdomen Exam: soft Results - Labs Lab/Micro Results: Lab Results-Last 24 Hours 11/15/22 11/15/22 11/15/22 Range/Units 01:47 10:15 10:15 WBC 5.4 (4.0-10.5) x10^3/uL RBC 3.74 L (4.1-5.6) x10^6/uL Hgb 12.6 (12.5-18.0) g/dL Hct 38.1 L (42-50) % MCV 101.9 H (78-100) fL MCH 33.7 H (26-32) pg MCHC 33.1 (32-36) g/dL RDW 12.8 (11.5-14.0) % Plt Count 262 (150-450) x10^3/uL MPV 8.8 (7.5-11.0) fL Gran % (36.0-66.0) % Immature Gran % (Auto) (0.00-0.4) % Nucleat RBC Rel Count (0.00-0.1) % Eos # (Auto) (0-0.5) x10^3/uL Immature Gran # (Auto) (0.00-0.03) x10^3u/L Absolute Lymphs (auto) (1.0-4.6) x10^3/uL Absolute Monos (auto) (0.0-1.3) x10^3/uL Absolute Nucleated RBC (0.00-0.01) x10^3u/L Lymphocytes % (24.0-44.0) % Monocytes % (0.0-12.0) % Eosinophils % (0.00-5.0) % Basophils % (0.0-0.4) % Absolute Granulocytes (1.4-6.9) x10^3/uL Basophils # (0-0.4) x10^3/uL PT 10.6 (9.4-12.5) SECONDS INR 0.97 (0.8-3.0) APTT 28.6 (25.1-36.5) SECONDS Sodium (137-145) mmol/L Potassium (3.5-5.1) mmol/L Chloride (98-107) mmol/L Carbon Dioxide (22-30) mmol/L Anion Gap (5-15) MEQ/L BUN (9-20) mg/dL Creatinine (0.66-1.25) mg/dL Estimated GFR ML/MIN Glucose (74-106) mg/dL POC Glucometer (74 to 106) mg/dL Calcium (8.4-10.2) mg/dL Magnesium (1.6-2.3) mg/dL Total Bilirubin (0.2-1.3) mg/dL AST (17-59) U/L ALT (0-50) U/L Alkaline Phosphatase (38-126) U/L Troponin I Cancelled Serum Total Protein (6.3-8.2) g/dL Albumin (3.5-5.0) g/dL 11/15/22 11/15/22 11/15/22 Range/Units 11:27 12:40 16:20 WBC (4.0-10.5) x10^3/uL RBC (4.1-5.6) x10^6/uL Hgb (12.5-18.0) g/dL Hct (42-50) % MCV (78-100) fL MCH (26-32) pg MCHC (32-36) g/dL RDW (11.5-14.0) % Plt Count (150-450) x10^3/uL MPV (7.5-11.0) fL Gran % (36.0-66.0) % Immature Gran % (Auto) (0.00-0.4) % Nucleat RBC Rel Count (0.00-0.1) % Eos # (Auto) (0-0.5) x10^3/uL Immature Gran # (Auto) (0.00-0.03) x10^3u/L Absolute Lymphs (auto) (1.0-4.6) x10^3/uL Absolute Monos (auto) (0.0-1.3) x10^3/uL Absolute Nucleated RBC (0.00-0.01) x10^3u/L Lymphocytes % (24.0-44.0) % Monocytes % (0.0-12.0) % Eosinophils % (0.00-5.0) % Basophils % (0.0-0.4) % Absolute Granulocytes (1.4-6.9) x10^3/uL Basophils # (0-0.4) x10^3/uL PT (9.4-12.5) SECONDS INR (0.8-3.0) APTT 27.8 28.0 (25.1-36.5) SECONDS Sodium (137-145) mmol/L Potassium (3.5-5.1) mmol/L Chloride (98-107) mmol/L Carbon Dioxide (22-30) mmol/L Anion Gap (5-15) MEQ/L BUN (9-20) mg/dL Creatinine (0.66-1.25) mg/dL Estimated GFR ML/MIN Glucose (74-106) mg/dL POC Glucometer 115 H (74 to 106) mg/dL Calcium (8.4-10.2) mg/dL Magnesium (1.6-2.3) mg/dL Total Bilirubin (0.2-1.3) mg/dL AST (17-59) U/L ALT (0-50) U/L Alkaline Phosphatase (38-126) U/L Troponin I Serum Total Protein (6.3-8.2) g/dL Albumin (3.5-5.0) g/dL 11/15/22 11/16/22 11/16/22 Range/Units 16:20 05:12 05:12 WBC 6.4 (4.0-10.5) x10^3/uL RBC 3.72 L (4.1-5.6) x10^6/uL Hgb 12.6 (12.5-18.0) g/dL Hct 37.7 L (42-50) % MCV 101.3 H (78-100) fL MCH 33.9 H (26-32) pg MCHC 33.4 (32-36) g/dL RDW 12.9 (11.5-14.0) % Plt Count 256 (150-450) x10^3/uL MPV 9.4 (7.5-11.0) fL Gran % 65.5 (36.0-66.0) % Immature Gran % (Auto) 0.5 H (0.00-0.4) % Nucleat RBC Rel Count 0.0 (0.00-0.1) % Eos # (Auto) 0.15 (0-0.5) x10^3/uL Immature Gran # (Auto) 0.03 (0.00-0.03) x10^3u/L Absolute Lymphs (auto) 1.34 (1.0-4.6) x10^3/uL Absolute Monos (auto) 0.65 (0.0-1.3) x10^3/uL Absolute Nucleated RBC 0.00 (0.00-0.01) x10^3u/L Lymphocytes % 21.0 L (24.0-44.0) % Monocytes % 10.2 (0.0-12.0) % Eosinophils % 2.3 (0.00-5.0) % Basophils % 0.5 (0.0-0.4) % Absolute Granulocytes 4.19 (1.4-6.9) x10^3/uL Basophils # 0.03 (0-0.4) x10^3/uL PT (9.4-12.5) SECONDS INR (0.8-3.0) APTT (25.1-36.5) SECONDS Sodium 134 L (137-145) mmol/L Potassium 3.8 (3.5-5.1) mmol/L Chloride 105 (98-107) mmol/L Carbon Dioxide 23 (22-30) mmol/L Anion Gap 10.1 (5-15) MEQ/L BUN 6 L (9-20) mg/dL Creatinine 0.63 L (0.66-1.25) mg/dL Estimated GFR > 60.0 ML/MIN Glucose 161 H (74-106) mg/dL POC Glucometer (74 to 106) mg/dL Calcium 7.6 L (8.4-10.2) mg/dL Magnesium 1.8 (1.6-2.3) mg/dL Total Bilirubin 0.30 (0.2-1.3) mg/dL AST 22 (17-59) U/L ALT 24 (0-50) U/L Alkaline Phosphatase 71 (38-126) U/L Troponin I Serum Total Protein 5.5 L (6.3-8.2) g/dL Albumin 2.9 L (3.5-5.0) g/dL 11/16/22 Range/Units 05:12 WBC (4.0-10.5) x10^3/uL RBC (4.1-5.6) x10^6/uL Hgb (12.5-18.0) g/dL Hct (42-50) % MCV (78-100) fL MCH (26-32) pg MCHC (32-36) g/dL RDW (11.5-14.0) % Plt Count (150-450) x10^3/uL MPV (7.5-11.0) fL Gran % (36.0-66.0) % Immature Gran % (Auto) (0.00-0.4) % Nucleat RBC Rel Count (0.00-0.1) % Eos # (Auto) (0-0.5) x10^3/uL Immature Gran # (Auto) (0.00-0.03) x10^3u/L Absolute Lymphs (auto) (1.0-4.6) x10^3/uL Absolute Monos (auto) (0.0-1.3) x10^3/uL Absolute Nucleated RBC (0.00-0.01) x10^3u/L Lymphocytes % (24.0-44.0) % Monocytes % (0.0-12.0) % Eosinophils % (0.00-5.0) % Basophils % (0.0-0.4) % Absolute Granulocytes (1.4-6.9) x10^3/uL Basophils # (0-0.4) x10^3/uL PT (9.4-12.5) SECONDS INR (0.8-3.0) APTT (25.1-36.5) SECONDS Sodium (137-145) mmol/L Potassium (3.5-5.1) mmol/L Chloride (98-107) mmol/L Carbon Dioxide (22-30) mmol/L Anion Gap (5-15) MEQ/L BUN (9-20) mg/dL Creatinine (0.66-1.25) mg/dL Estimated GFR ML/MIN Glucose (74-106) mg/dL POC Glucometer (74 to 106) mg/dL Calcium (8.4-10.2) mg/dL Magnesium 1.7 (1.6-2.3) mg/dL Total Bilirubin (0.2-1.3) mg/dL AST (17-59) U/L ALT (0-50) U/L Alkaline Phosphatase (38-126) U/L Troponin I Serum Total Protein (6.3-8.2) g/dL Albumin (3.5-5.0) g/dL Accuchecks Date 11/15/22 Time 11:32 - Radiology Impressions Radiology Exams & Impressions: Radiology Procedures Category Date Time Status CAROTID BILATERAL [US] Routine Exams 11/17/22 08:00 Ordered CHEST 1 VIEW (PORTABLE) Stat Exams 11/14/22 21:19 Completed ECHO W/2D AND DOPPLER [US] Routine Exams 11/17/22 08:00 Ordered HEAD WITHOUT CONTRAST [CT] Stat Exams 11/15/22 00:02 Completed MRA BRAIN WITHOUT CONTRAST [MRI] Routine Exams 11/17/22 08:00 Ordered MRA NECK WITHOUT CONTRAST [MRI] Routine Exams 11/17/22 08:00 Ordered Assessment/Plan (1) Dehydration Current Visit: No Status: Acute Assessment & Plan: Banana bag, check orthostatics; fluid hydration Code(s): E86.0 - DEHYDRATION (2) Uncontrolled hypertension Current Visit: Yes Status: Acute Assessment & Plan: stable; not on meds currently; will treat as needed Code(s): I10 - ESSENTIAL (PRIMARY) HYPERTENSION (3) Substance abuse Current Visit: Yes Status: Acute Assessment & Plan: caleb discuss counseling options once out of withdrawal, [facility] protocol for alcohol withdrawal, with anxiety and agitation, slightly tachycardic Code(s): F19.10 - OTHER PSYCHOACTIVE SUBSTANCE ABUSE, UNCOMPLICATED (4) Stroke Current Visit: Yes Status: Acute Qualifiers: CVA mechanism: unspecified Qualified Code(s): I63.9 - Cerebral infarction, unspecified Assessment & Plan: CT with likely subdural hematoma; chronicity unknown; will plan for MRI on thursday Code(s): I63.9 - CEREBRAL INFARCTION, UNSPECIFIED Telemedicine Encounter - Telemedicine Encounter Telemedicine Encounter: The entirety of this encounter was performed via Telemedicine"
--- NOTE | 2022-11-16 09:30 | PCM.NOTE ---
Date and Time: 11/16/22927 Subjective Assessment: Better today; eating; no neurologic complaints other than chronic poor gait, MRI toilorrow; has not needed ativan since yesterday - Review of Systems Eyes: No Symptoms Ears, Nose, & Throat: No Symptoms Respiratory: No Symptoms Cardiac: No Symptoms Abdominal/Gastrointestinal: No Symptoms Genitourinary Symptoms: No Symptoms Musculoskeletal: No Symptoms Skin: No Symptoms Neurological: No Symptoms Objective Exam Neurologic Exam: alert, cooperative Skin Exam: normal color Neck Exam: normal inspection Respiratory Exam: normal breath sounds Cardiovascular Exam: regular rate/rhythm Gastrointestinal/Abdomen Exam: soft OBJECTIVE DATA Vital Signs: Vital Signs - 24 hr Temp Pulse Resp BP BP Pulse Ox 11/16/22 07:22 98.2 F 64 18 173/78 95 11/16/22 04:00 97.5 F 65 18 140/58 95 11/16/22 00:00 66 16 11/15/22 20:00 97.9 F 68 18 133/90 94 L 11/15/22 16:30 57 L 11/15/22 16:00 95 11/15/22 15:59 97 H 20 95 11/15/22 15:51 97.9 F 57 L 16 124/73 95 11/15/22 12:26 65 21 110/72 11/15/22 11:32 97.8 F 56 L 17 110/72 97 Pain Assessment - Last Documented Pain Intensity 0 Intake and Output: Intake & Output 11/13/22 11/14/22 11/15/22 11/16/22 11:59 11:59 11:59 11:59 Intake Total 240 4425 Output Total 1550 Balance 240 2875 Weight 83.7 kg Lab Results: Lab Results-Last 24 Hours 11/15/22 11/15/22 11/15/22 Range/Units 01:47 10:15 10:15 WBC 5.4 (4.0-10.5) x10^3/uL RBC 3.74 L (4.1-5.6) x10^6/uL Hgb 12.6 (12.5-18.0) g/dL Hct 38.1 L (42-50) % MCV 101.9 H (78-100) fL MCH 33.7 H (26-32) pg MCHC 33.1 (32-36) g/dL RDW 12.8 (11.5-14.0) % Plt Count 262 (150-450) x10^3/uL MPV 8.8 (7.5-11.0) fL Gran % (36.0-66.0) % Immature Gran % (Auto) (0.00-0.4) % Nucleat RBC Rel Count (0.00-0.1) % Eos # (Auto) (0-0.5) x10^3/uL Immature Gran # (Auto) (0.00-0.03) x10^3u/L Absolute Lymphs (auto) (1.0-4.6) x10^3/uL Absolute Monos (auto) (0.0-1.3) x10^3/uL Absolute Nucleated RBC (0.00-0.01) x10^3u/L Lymphocytes % (24.0-44.0) % Monocytes % (0.0-12.0) % Eosinophils % (0.00-5.0) % Basophils % (0.0-0.4) % Absolute Granulocytes (1.4-6.9) x10^3/uL Basophils # (0-0.4) x10^3/uL PT 10.6 (9.4-12.5) SECONDS INR 0.97 (0.8-3.0) APTT 28.6 (25.1-36.5) SECONDS Sodium (137-145) mmol/L Potassium (3.5-5.1) mmol/L Chloride (98-107) mmol/L Carbon Dioxide (22-30) mmol/L Anion Gap (5-15) MEQ/L BUN (9-20) mg/dL Creatinine (0.66-1.25) mg/dL Estimated GFR ML/MIN Glucose (74-106) mg/dL POC Glucometer (74 to 106) mg/dL Calcium (8.4-10.2) mg/dL Magnesium (1.6-2.3) mg/dL Total Bilirubin (0.2-1.3) mg/dL AST (17-59) U/L ALT (0-50) U/L Alkaline Phosphatase (38-126) U/L Troponin I Cancelled Serum Total Protein (6.3-8.2) g/dL Albumin (3.5-5.0) g/dL 11/15/22 11/15/22 11/15/22 Range/Units 11:27 12:40 16:20 WBC (4.0-10.5) x10^3/uL RBC (4.1-5.6) x10^6/uL Hgb (12.5-18.0) g/dL Hct (42-50) % MCV (78-100) fL MCH (26-32) pg MCHC (32-36) g/dL RDW (11.5-14.0) % Plt Count (150-450) x10^3/uL MPV (7.5-11.0) fL Gran % (36.0-66.0) % Immature Gran % (Auto) (0.00-0.4) % Nucleat RBC Rel Count (0.00-0.1) % Eos # (Auto) (0-0.5) x10^3/uL Immature Gran # (Auto) (0.00-0.03) x10^3u/L Absolute Lymphs (auto) (1.0-4.6) x10^3/uL Absolute Monos (auto) (0.0-1.3) x10^3/uL Absolute Nucleated RBC (0.00-0.01) x10^3u/L Lymphocytes % (24.0-44.0) % Monocytes % (0.0-12.0) % Eosinophils % (0.00-5.0) % Basophils % (0.0-0.4) % Absolute Granulocytes (1.4-6.9) x10^3/uL Basophils # (0-0.4) x10^3/uL PT (9.4-12.5) SECONDS INR (0.8-3.0) APTT 27.8 28.0 (25.1-36.5) SECONDS Sodium (137-145) mmol/L Potassium (3.5-5.1) mmol/L Chloride (98-107) mmol/L Carbon Dioxide (22-30) mmol/L Anion Gap (5-15) MEQ/L BUN (9-20) mg/dL Creatinine (0.66-1.25) mg/dL Estimated GFR ML/MIN Glucose (74-106) mg/dL POC Glucometer 115 H (74 to 106) mg/dL Calcium (8.4-10.2) mg/dL Magnesium (1.6-2.3) mg/dL Total Bilirubin (0.2-1.3) mg/dL AST (17-59) U/L ALT (0-50) U/L Alkaline Phosphatase (38-126) U/L Troponin I Serum Total Protein (6.3-8.2) g/dL Albumin (3.5-5.0) g/dL 11/15/22 11/16/22 11/16/22 Range/Units 16:20 05:12 05:12 WBC 6.4 (4.0-10.5) x10^3/uL RBC 3.72 L (4.1-5.6) x10^6/uL Hgb 12.6 (12.5-18.0) g/dL Hct 37.7 L (42-50) % MCV 101.3 H (78-100) fL MCH 33.9 H (26-32) pg MCHC 33.4 (32-36) g/dL RDW 12.9 (11.5-14.0) % Plt Count 256 (150-450) x10^3/uL MPV 9.4 (7.5-11.0) fL Gran % 65.5 (36.0-66.0) % Immature Gran % (Auto) 0.5 H (0.00-0.4) % Nucleat RBC Rel Count 0.0 (0.00-0.1) % Eos # (Auto) 0.15 (0-0.5) x10^3/uL Immature Gran # (Auto) 0.03 (0.00-0.03) x10^3u/L Absolute Lymphs (auto) 1.34 (1.0-4.6) x10^3/uL Absolute Monos (auto) 0.65 (0.0-1.3) x10^3/uL Absolute Nucleated RBC 0.00 (0.00-0.01) x10^3u/L Lymphocytes % 21.0 L (24.0-44.0) % Monocytes % 10.2 (0.0-12.0) % Eosinophils % 2.3 (0.00-5.0) % Basophils % 0.5 (0.0-0.4) % Absolute Granulocytes 4.19 (1.4-6.9) x10^3/uL Basophils # 0.03 (0-0.4) x10^3/uL PT (9.4-12.5) SECONDS INR (0.8-3.0) APTT (25.1-36.5) SECONDS Sodium 134 L (137-145) mmol/L Potassium 3.8 (3.5-5.1) mmol/L Chloride 105 (98-107) mmol/L Carbon Dioxide 23 (22-30) mmol/L Anion Gap 10.1 (5-15) MEQ/L BUN 6 L (9-20) mg/dL Creatinine 0.63 L (0.66-1.25) mg/dL Estimated GFR > 60.0 ML/MIN Glucose 161 H (74-106) mg/dL POC Glucometer (74 to 106) mg/dL Calcium 7.6 L (8.4-10.2) mg/dL Magnesium 1.8 (1.6-2.3) mg/dL Total Bilirubin 0.30 (0.2-1.3) mg/dL AST 22 (17-59) U/L ALT 24 (0-50) U/L Alkaline Phosphatase 71 (38-126) U/L Troponin I Serum Total Protein 5.5 L (6.3-8.2) g/dL Albumin 2.9 L (3.5-5.0) g/dL 11/16/22 Range/Units 05:12 WBC (4.0-10.5) x10^3/uL RBC (4.1-5.6) x10^6/uL Hgb (12.5-18.0) g/dL Hct (42-50) % MCV (78-100) fL MCH (26-32) pg MCHC (32-36) g/dL RDW (11.5-14.0) % Plt Count (150-450) x10^3/uL MPV (7.5-11.0) fL Gran % (36.0-66.0) % Immature Gran % (Auto) (0.00-0.4) % Nucleat RBC Rel Count (0.00-0.1) % Eos # (Auto) (0-0.5) x10^3/uL Immature Gran # (Auto) (0.00-0.03) x10^3u/L Absolute Lymphs (auto) (1.0-4.6) x10^3/uL Absolute Monos (auto) (0.0-1.3) x10^3/uL Absolute Nucleated RBC (0.00-0.01) x10^3u/L Lymphocytes % (24.0-44.0) % Monocytes % (0.0-12.0) % Eosinophils % (0.00-5.0) % Basophils % (0.0-0.4) % Absolute Granulocytes (1.4-6.9) x10^3/uL Basophils # (0-0.4) x10^3/uL PT (9.4-12.5) SECONDS INR (0.8-3.0) APTT (25.1-36.5) SECONDS Sodium (137-145) mmol/L Potassium (3.5-5.1) mmol/L Chloride (98-107) mmol/L Carbon Dioxide (22-30) mmol/L Anion Gap (5-15) MEQ/L BUN (9-20) mg/dL Creatinine (0.66-1.25) mg/dL Estimated GFR ML/MIN Glucose (74-106) mg/dL POC Glucometer (74 to 106) mg/dL Calcium (8.4-10.2) mg/dL Magnesium 1.7 (1.6-2.3) mg/dL Total Bilirubin (0.2-1.3) mg/dL AST (17-59) U/L ALT (0-50) U/L Alkaline Phosphatase (38-126) U/L Troponin I Serum Total Protein (6.3-8.2) g/dL Albumin (3.5-5.0) g/dL Radiology Exams: Radiology Procedures Category Date Time Status CAROTID BILATERAL [US] Routine Exams 11/17/22 08:00 Ordered CHEST 1 VIEW (PORTABLE) Stat Exams 11/14/22 21:19 Completed ECHO W/2D AND DOPPLER [US] Routine Exams 11/17/22 08:00 Ordered HEAD WITHOUT CONTRAST [CT] Stat Exams 11/15/22 00:02 Completed MRA BRAIN WITHOUT CONTRAST [MRI] Routine Exams 11/17/22 08:00 Ordered MRA NECK WITHOUT CONTRAST [MRI] Routine Exams 11/17/22 08:00 Ordered Assessment/Plan (1) Dehydration Current Visit: No Status: Acute Code(s): E86.0 - DEHYDRATION (2) Uncontrolled hypertension Current Visit: Yes Status: Acute Code(s): I10 - ESSENTIAL (PRIMARY) HYPERTENSION (3) Substance abuse Current Visit: Yes Status: Acute Code(s): F19.10 - OTHER PSYCHOACTIVE SUBSTANCE ABUSE, UNCOMPLICATED (4) Stroke Current Visit: Yes Status: Acute Qualifiers: CVA mechanism: unspecified Qualified Code(s): I63.9 - Cerebral infarction, unspecified Assessment & Plan: (1) Dehydration Current Visit: No Status: Acute Assessment & Plan: Banana bag, check orthostatics; fluid hydration Code(s): E86.0 - DEHYDRATION (2) Uncontrolled hypertension Current Visit: Yes Status: Acute Assessment & Plan: stable; not on meds currently; will treat as needed Code(s): I10 - ESSENTIAL (PRIMARY) HYPERTENSION (3) Substance abuse Current Visit: Yes Status: Acute Assessment & Plan: caleb discuss counseling options once out of withdrawal, [facility] protocol for alcohol withdrawal, with anxiety and agitation, slightly tachycardic Code(s): F19.10 - OTHER PSYCHOACTIVE SUBSTANCE ABUSE, UNCOMPLICATED (4) Stroke Current Visit: Yes Status: Acute Qualifiers: CVA mechanism: unspecified Qualified Code(s): I63.9 - Cerebral infarction, unspecified Assessment & Plan: CT with likely subdural hematoma; chronicity unknown; will plan for MRI on thursday Code(s): I63.9 - CEREBRAL INFARCTION, UNSPECIFIED Code(s): I63.9 - CEREBRAL INFARCTION, UNSPECIFIED Telemedicine Encounter - Telemedicine Encounter Telemedicine Encounter: The entirety of this encounter was performed via Telemedicine"
[2022-11-16] MEDS: Ativan 2 MG/1 ML VIAL IV PRN ×3 (09:39→15:12)
[2022-11-16] MEDS: Nicoderm CQ 21 MG TOP SCH (09:42)
[2022-11-16] MEDS: ROCEPHIN 1 Gm-D5w 50 ml Bag** 1 G/50 ML IVPB IV SCH (10:09)
[2022-11-16] MEDS: FOLATE 1 MG PO SCH (10:16)
[2022-11-16] MEDS: Apresoline 25 MG TABLET PO SCH ×3 (12:02→21:10)
[2022-11-17 04:44] LABS: Hematocrit 36.5 % (42-50); Hemoglobin 12.3 g/dL (12.5-18.0); Mean Cell Volume 100.3 fL (78-100); Mean Corpuscular Hemoglobin 33.8 pg (26-32); Mean Corpuscular Hgb Concent. 33.7 g/dL (32-36); Mean Platelet Volume 9.4 fL (7.5-11.0); Platelet Count 243 x10^3/uL (150-450); Red Blood Count 3.64 x10^6/uL (4.1-5.6); Red Cell Distribution Width 12.7 % (11.5-14.0); White Blood Count 6.3 x10^3/uL (4.0-10.5)
[2022-11-17 04:50] LABS: ALBUMIN 3.1 g/dL (3.5-5.0); ALKALINE PHOSPHATASE 64 U/L (38-126); ANION GAP 10.5 MEQ/L (5-15); BLOOD UREA NITROGEN 7 mg/dL (9-20); CHLORIDE 103 mmol/L (98-107); Calcium 8.1 mg/dL (8.4-10.2); Carbon Dioxide 25 mmol/L (22-30); Creatinine 1 0.64 mg/dL (0.66-1.25); EST GLOMERULAR FILTRATION RATE > 60.0 ML/MIN; Glucose 114 mg/dL (74-106); Potassium 3.9 mmol/L (3.5-5.1); SGOT/AST 19 U/L (17-59); SGPT/ALT 22 U/L (0-50); SODIUM 134 mmol/L (137-145); Total Protein 5.9 g/dL (6.3-8.2)
[2022-11-17] MEDS: Dextrose 5%-Lr IV Solution 1000 ML 1,000 ML IV SCH ×2 (07:31→08:17)
[2022-11-17] MEDS: Nicoderm CQ 21 MG TOP SCH (09:49)
[2022-11-17] MEDS: Apresoline 25 MG TABLET PO SCH ×2 (09:49→14:41)
[2022-11-17] MEDS: FOLATE 1 MG PO SCH (09:49)
--- NOTE | 2022-11-17 10:52 | XRAY ---
Indication: Right parietal hypodensity. Two-dimensional sonogram and color Doppler imaging of the carotid arteries in the neck performed. Comparison: None Examination of the right carotid circulation demonstrates minimal common carotid, mild carotid bulb, and minimal internal carotid calcified plaqu[place]. Remaining external carotid artery widely patent. PSV of the CCA is 83 cm/s. PSV of the ICA is 114 cm/s. ICA/CCA ratio is 1.4. Normal antegrade vertebral artery flow. Examination of the left carotid circulation demonstrates minimal common carotid, mild carotid bulb, and mild internal carotid calcified plaquing. External carotid artery widely patent. PSV of the CCA is 104 cm/s. PSV of the ICA is 86 cm/s. ICA/CCA ratio is 0.8. Normal antegrade vertebral artery flow. Impression: Minimal/mild scattered arteriosclerotic plaquing bilaterally as detailed. Velocity measurements and ratios are negative for hemodynamically significant flow-limiting stenosis.
--- NOTE | 2022-11-17 14:35 | XRAY ---
Indication: Right parietal hypodensity on recent CT head. Altered mental status. Multi-slab 3-D [id number] MRA [place] was performed. Comparison: None Distal internal carotid arteries are bilaterally symmetric without critical stenosis/obstruction. Normal carotid terminus with normal branching A1 and M1 segments bilaterally. Normal appearing anterior communicating and left/right posterior communicating arteries. Posterior circulation demonstrates normal MRA appearance to the distal vertebral arteries with the right larger in caliber. Normal MRA appearance to the basilar, left/right posterior cerebral, and left/right superior cerebellar arteries. Impression: Normal MRA [place].
--- NOTE | 2022-11-17 14:59 | XRAY ---
Indication: Right parietal hypodensity on recent CT head. Altered mental status. Multi-slab 3-D [id number] MRA neck performed. Comparison: None. Visualized distal common carotid, carotid bulb, internal carotid, and external carotid arteries are bilaterally negative for critical stenosis or obstruction. Visualized verbal arteries are normal in course and caliber with right slightly larger in caliber. Impression: Negative MRA neck. See same-day carotid ultrasound exam.
[2022-11-17] MEDS: Ativan 2 MG/1 ML VIAL IV PRN (15:44)
[2022-11-17 15:52] VITALS: RESP 14; TEMP 98.2; O2SAT 95
--- NOTE | 2022-11-17 16:49 | XRAY ---
Indication: Acute mental status change. Abnormal CT head November 15, 2022. Sagittal, coronal, and axial MRI brain performed without contrast using T1, T2, FLAIR, diffusion, and ADC sequences. Comparison: None Age-appropriate global atrophy and moderate periventricular degenerative micro-ischemia bilaterally. Brainstem/lilia demonstrates lesser degenerative micro-ischemia signal. Posterior right parietal demonstrates small focus encephalomalacia with surrounding gliosis favoring old infarct. No acute intracranial hemorrhage, hydrocephalus, or mass effect. Diffusion images negative for restricted signal. Fourth ventricle is midline. 7/8 cranial nerve complex bilaterally symmetric. Normal flow void signal within the major intracerebral circulation. Normal appearing craniocervical junction and sella turcica. Left maxillary sinus demonstrates mild mucosal thickening. Remaining paranasal sinuses are clear. Impression: 1. Aging brain including atrophy and degenerative micro-ischemia as detailed. 2. 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 3. No acute intracranial abnormalities or evidence for evolving large vessel territorial stroke. 4. Incidental paranasal sinus disease.
[2022-11-17 16:53] VITALS: PULSE 66
[2022-11-17] MEDS ORDERED: Zestril 20 MG PO ONE (16:54)
--- NOTE | 2022-11-17 17:41 | PCM.DS ---
Discharge Summary Date of Admission: 11/15/22 08:21 Date of Discharge: 11/17/22 Admitting Physician: BRITTNI MUNGUIA MD Consults: Consults on Case 11/15/22 04:19 Tele-Health Consult ROUTINE Primary Care Provider: NO FAMILY DOCTOR <GHADA PALACIO - Last Filed: 11/17/22 18:14> Date of Admission: 11/15/22 08:21 Admitting Physician: BRITTNI MUNGUIA MD Consults: Consults on Case 11/15/22 04:19 Tele-Health Consult ROUTINE Primary Care Provider: NO FAMILY DOCTOR <CARMEN RODRIGUEZ - Last Filed: 11/17/22 19:09> Allergies <GHADA PALACIO - Last Filed: 11/17/22 18:14> <CARMEN RODRIGUEZ - Last Filed: 11/17/22 19:09> Allergies No Known Drug Allergies Allergy (Verified 11/14/22 21:18) Hospital Summary - Hospital Course Hospital Course: Mr. Loja is a 61 years old male with a pmhx of hypertension noncompliant with medications and polysubstance abuse admitted 11/15/22 for stroke evaluation and uncontrolled hypertension after presenting to ED via EMS with chief complaint of sudden onset funny feeling starting from both feet traveling up and started to feel dizzy/lightheaded prior to arrival when he was walking. Patient had reported that he had been walking all day long in the hot and probably got heat exhausted. During hospital course CT imaging showed an symmetric ill-defined hypodensity in the right posterior parietal lobe concerning for possible subacute infarct versus extended microvascular ischemic change,and mild hydrocephalus, unchanged from prior. Neurology evaluated patient's imaging and recommended further workup with MRA of the neck, MRI of the brain, aspirin,and atorvastatin. MRI imaging of the brain showed findings of aging brain including atrophy and degenerative micro-ischemia, a small old infarct posterior right parietal lobe corresponding to CT. No acute intracranial abnormalities or evidence for evolving large vessel territorial stroke. MRA of the neck negative. Patient was also found with hypertension with BP readings in thee 200's/110's during hospitalization, he admits to previously being non-compliant with hypertension regimen. Urine drug screen positive for amphetamines and THC. Patient also reports daily alcohol consumption. CM discussed discharging to rehab facilities for which patient declines. He will would prefer to discharge home. Patient provided with walker to help with ambulation. Patient is cleared for discharge with new regimen of simvastatin, ASA, and lisinopril. Patient advised close follow up with PCP, rehab facility information provided to patient. Follow up with PCP in 3-5 days, keep blood pressure log to take to PCP. (1) Dehydration Current Visit: No Status: Acute Code(s): E86.0 - DEHYDRATION -resolved (2) Uncontrolled hypertension Current Visit: Yes Status: Acute Code(s): I10 - ESSENTIAL (PRIMARY) HYPERTENSION -continue on lisinopril 20mg (3) Substance abuse Current Visit: Yes Status: Acute Code(s): F19.10 - OTHER PSYCHOACTIVE SUBSTANCE ABUSE, UNCOMPLICATED -declines rehab at this time (4) Stroke Current Visit: Yes Status: Acute Qualifiers: CVA mechanism: unspecified Qualified Code(s): I63.9 - Cerebral infarction, unspecified -MRI discussed above, continue regimen of simvastatin, ASA Assessment & Plan: Dispo: Home New meds: Simvastatin, ASA, lisinopril Follow up: PCP - Vitals & Intake/Output Vital Signs: Vital Signs Temperature 98.2 F 11/17/22 15:48 Pulse Rate 66 11/17/22 16:51 Respiratory Rate 14 11/17/22 15:48 Blood Pressure 180/94 11/17/22 16:51 O2 Sat by Pulse Oximetry 95 11/17/22 15:48 Intake & Output: Intake & Output 11/15/22 11/16/22 11/17/22 11/18/22 11:59 11:59 11:59 11:59 Intake Total 240 4425 2891 960 Output Total 1550 300 Balance 240 2875 2591 960 Weight 83.7 kg - Lab Result Diagrams: 11/17/22 04:25 11/17/22 04:25 Lab Results-Last 24 Hrs: Lab Results-Last 24 Hours 11/17/22 11/17/22 Range/Units 04:25 04:25 WBC 6.3 (4.0-10.5) x10^3/uL RBC 3.64 L (4.1-5.6) x10^6/uL Hgb 12.3 L (12.5-18.0) g/dL Hct 36.5 L (42-50) % MCV 100.3 H (78-100) fL MCH 33.8 H (26-32) pg MCHC 33.7 (32-36) g/dL RDW 12.7 (11.5-14.0) % Plt Count 243 (150-450) x10^3/uL MPV 9.4 (7.5-11.0) fL Sodium 134 L (137-145) mmol/L Potassium 3.9 (3.5-5.1) mmol/L Chloride 103 (98-107) mmol/L Carbon Dioxide 25 (22-30) mmol/L Anion Gap 10.5 (5-15) MEQ/L BUN 7 L (9-20) mg/dL Creatinine 0.64 L (0.66-1.25) mg/dL Estimated GFR > 60.0 ML/MIN Glucose 114 H (74-106) mg/dL Calcium 8.1 L (8.4-10.2) mg/dL Total Bilirubin 0.30 (0.2-1.3) mg/dL AST 19 (17-59) U/L ALT 22 (0-50) U/L Alkaline Phosphatase 64 (38-126) U/L Serum Total Protein 5.9 L (6.3-8.2) g/dL Albumin 3.1 L (3.5-5.0) g/dL - Radiology Exams Ordered Rad Exams-Entire Visit: Radiology Procedures Category Date Time Status CAROTID BILATERAL [US] Routine Exams 11/17/22 08:00 Completed ECHO W/2D AND DOPPLER [US] Routine Exams 11/17/22 08:00 Taken MRA BRAIN WITHOUT CONTRAST [MRI] Routine Exams 11/17/22 08:00 Completed MRA NECK W AND W/O CONTRAST [MRI] Routine Exams 11/17/22 08:00 Completed MRI BRAIN W/O CONTRAST [MRI] Routine Exams 11/17/22 15:49 Completed - Procedures and Test Procedures and Tests throughout Hospitalization: Therapy Orders & Screens 11/15/22 08:33 PT Eval & Treat ( Order) ONCE Reason for Eval:: stroke Diagnosis: subacute stroke Respiratory Therapy Consult ROUTINE Comment: Reason For Exam: ST Eval & Treat ( Order) ROUTINE Comment: Physician Instructions: Reason For Exam: Evaluate: Yes Treat: Yes Reason for Eval: subacute stroke Diagnosis: subacute stroke OT Eval and Treat ( Order) ONCE Comment: Physician Instructions: Reason For Exam: <GHADA PALACIO - Last Filed: 11/17/22 18:14> - Vitals & Intake/Output Vital Signs: Vital Signs Temperature 98.2 F 11/17/22 15:48 Pulse Rate 66 11/17/22 16:51 Respiratory Rate 14 11/17/22 15:48 Blood Pressure 177/89 11/17/22 17:48 O2 Sat by Pulse Oximetry 95 11/17/22 15:48 Intake & Output: Intake & Output 11/15/22 11/16/22 11/17/22 11/18/22 11:59 11:59 11:59 11:59 Intake Total 240 4470 2891 1200 Output Total 1550 300 Balance 240 2875 2591 1200 Weight 83.7 kg - Lab Result Diagrams: 11/17/22 04:25 11/17/22 04:25 Lab Results-Last 24 Hrs: Lab Results-Last 24 Hours 11/17/22 11/17/22 Range/Units 04:25 04:25 WBC 6.3 (4.0-10.5) x10^3/uL RBC 3.64 L (4.1-5.6) x10^6/uL Hgb 12.3 L (12.5-18.0) g/dL Hct 36.5 L (42-50) % MCV 100.3 H (78-100) fL MCH 33.8 H (26-32) pg MCHC 33.7 (32-36) g/dL RDW 12.7 (11.5-14.0) % Plt Count 243 (150-450) x10^3/uL MPV 9.4 (7.5-11.0) fL Sodium 134 L (137-145) mmol/L Potassium 3.9 (3.5-5.1) mmol/L Chloride 103 (98-107) mmol/L Carbon Dioxide 25 (22-30) mmol/L Anion Gap 10.5 (5-15) MEQ/L BUN 7 L (9-20) mg/dL Creatinine 0.64 L (0.66-1.25) mg/dL Estimated GFR > 60.0 ML/MIN Glucose 114 H (74-106) mg/dL Calcium 8.1 L (8.4-10.2) mg/dL Total Bilirubin 0.30 (0.2-1.3) mg/dL AST 19 (17-59) U/L ALT 22 (0-50) U/L Alkaline Phosphatase 64 (38-126) U/L Serum Total Protein 5.9 L (6.3-8.2) g/dL Albumin 3.1 L (3.5-5.0) g/dL - Radiology Exams Ordered Rad Exams-Entire Visit: Radiology Procedures Category Date Time Status CAROTID BILATERAL [US] Routine Exams 11/17/22 08:00 Completed ECHO W/2D AND DOPPLER [US] Routine Exams 11/17/22 08:00 Taken MRA BRAIN WITHOUT CONTRAST [MRI] Routine Exams 11/17/22 08:00 Completed MRA NECK W AND W/O CONTRAST [MRI] Routine Exams 11/17/22 08:00 Completed MRI BRAIN W/O CONTRAST [MRI] Routine Exams 11/17/22 15:49 Completed - Procedures and Test Procedures and Tests throughout Hospitalization: Therapy Orders & Screens 11/15/22 08:33 PT Eval & Treat (MD Order) ONCE Reason for Eval:: stroke Diagnosis: subacute stroke Respiratory Therapy Consult ROUTINE Comment: Reason For Exam: ST Eval & Treat (MD Order) ROUTINE Comment: Physician Instructions: Reason For Exam: Evaluate: Yes Treat: Yes Reason for Eval: subacute stroke Diagnosis: subacute stroke OT Eval and Treat (MD Order) ONCE Comment: Physician Instructions: Reason For Exam: <CARMEN RODRIGUEZ - Last Filed: 11/17/22 19:09> Discharge Exam General Appearance: no apparent distress Neurologic Exam: alert, oriented x 3, cooperative Eye Exam: PERRL Ears, Nose, Throat Exam: normal ENT inspection Neck Exam: normal inspection Respiratory Exam: normal breath sounds Cardiovascular Exam: regular rate/rhythm Gastrointestinal/Abdomen Exam: soft, normal bowel sounds Extremity Exam: normal inspection Skin Exam: normal color, warm, dry <GHADA PALACIO - Last Filed: 11/17/22 18:14> Final Diagnosis/Problem List - Final Discharge Diagnosis/Problem (1) Stroke Status: Chronic Code(s): I63.9 - CEREBRAL INFARCTION, UNSPECIFIED (2) Substance abuse Status: Chronic Code(s): F19.10 - OTHER PSYCHOACTIVE SUBSTANCE ABUSE, UNCOMPLICATED (3) Uncontrolled hypertension Status: Chronic Code(s): I10 - ESSENTIAL (PRIMARY) HYPERTENSION <GHADA PALACIO - Last Filed: 11/17/22 18:14> Telemedicine Encounter - Telemedicine Encounter Telemedicine Encounter: The entirety of this encounter was performed via Telemedicine" <GHADA PALACIO - Last Filed: 11/17/22 18:14> - Telemedicine Encounter Telemedicine Encounter: I have personally seen and examined patient and discussed care with Ghada Palacio NP and reviewed pertinent clinical data including history, physical, and diagnostic findings. I agree with the assessment, and treatment plan as described in her original note. Please see below for my summary of findings and any additional assessment and plan, as well as any meaningful corrections or explanations of their note. My portion of visit was conducted entirely via telemedicine, to which patient consented. 61 y/o M with h/o untreated hypertension, polysubstance abuse including tobacco, alcohol, and amphetamines, who presented with paresthesias and altered mentation. Initial CT head showed posterior parietal lesion, age indeterminate, and neurology recommended admission for stroke evaluation. Patient's mental status quickly improved, but became hypertensive overnight requiring initiation of hydralazine. MRI eventually showed old parietal stroke but no new lesions, no vasculopathy. Echo performed but pending at time of discharge. He has a chronic unsteady gait, and we were able to arrange for a cane, but he declined rehab or outpatient PT services, and unable to arrange home health with his uncertain living conditions (and he declined home health in any case.) Started on aspirin, statin, and lisinopril 20, all arranged to be more affordable for patient. Carmen Rodriguez MD, PhD Internal Medicine Hospitalist [facility] <CARMEN RODRIGUEZ - Last Filed: 11/17/22 19:09> <GHADA PALACIO - Last Filed: 11/17/22 18:14> <CARMEN RODRIGUEZ - Last Filed: 11/17/22 19:09> - Discharge Disposition: Home, Self-Care Condition: Stable Prescriptions: New Nicotine 21 mg [Nicoderm CQ 21 MG] 21 mg TOP Q24H patch Aspirin EC 81 mg [Ecotrin 81 mg] 81 mg PO DAILY 30 Days #30 tablet Simvastatin 40 mg PO DAILY 30 Days #30 tablet Lisinopril 20 mg [Zestril 20 MG] 20 mg PO DAILY #30 tablet Instructions: High Blood Pressure (DC), Stroke (DC) Follow up with: ROM JOHNSON MD [ACTIVE STAFF] - 11/24/22 2:30 pm (Appointment at [facility] ) Forms: Discharge Instructions
[2022-11-17 17:50] VITALS: BP 177/89
== END 2022-11-17 18:40 | disposition home or self-care (01) ==
LOC: ED 20:59 → MED SURG 11-15 08:21
PROVIDERS: ADMIT Internal Medicine; ATTEND Internal Medicine
DX: I63.9 Cerebral infarction, unspecified (principal); E86.0 Dehydration; I10 Essential (primary) hypertension; F19.10 Other psychoactive substance abuse, uncomplicated; Z91.148 Patient's other noncompliance with medication regimen for other reason; Z20.828 Contact with and (suspected) exposure to other viral communicable diseases; Z72.0 Tobacco use
CPT/HCPCS: 36000; 36415; 70450; 70544; 70549; 70551; 71045; 80053; 80307; 81001; 82077; 82550; 82947; 83605; 83735; 84484; 85025; 85027; 85610; 85730; 93005; 93306; 93880; 94760; 96360; 97161; 97165; 97530; 99285; 99291; Q3014; J0696; J2060; A9270-GY

== ENCOUNTER 2023-07-08 18:34 | Emergency (ER) | payer OTHER ==
[2023-07-08 18:44] VITALS: TEMP 98.2
[2023-07-08] MEDS ORDERED: Zofran 4 MG/2 ML VIAL ONE (18:51)
[2023-07-08] MEDS ORDERED: PROTONIX 40 MG IV IV ONE (18:51)
[2023-07-08] MEDS ORDERED: Sodium Chloride 0.9% 1000 ML 1,000 ML ONE (18:51)
[2023-07-08] MEDS ORDERED: THIAMINE 200 MG/2 ML ONE (18:51)
[2023-07-08] MEDS: Zofran 4 MG/2 ML VIAL IV ONE (18:53)
[2023-07-08] MEDS: THIAMINE 200 MG/2 ML IV ONE (18:53)
[2023-07-08] MEDS: PROTONIX 40 MG IV IV ONE (18:53)
[2023-07-08] MEDS: Sodium Chloride 0.9% 1000 ML 1,000 ML IV STA (18:53)
--- NOTE | 2023-07-08 18:58 | ERPHSYRPT ---
- History of Present Illness Source: patient, old records Exam Limitations: clinical condition, intoxication Patient Subjective Stated Complaint: Police states "I am EDing him because he is intoxicated and a danger to himself" Triage Nursing Assessment: Pt presented alert and oriented X 3, skin pwd. Pt ambulates with a staggering gait, speech is slurred, Pt was incontinent of bowel. PT had bowel all over his legs. Pt was scrubbed and cleaned. PT denied any suicidal ideation, pt denied any homicidal ideation. Timing/Duration: today Severity of Symptoms-Max: moderate Severity of Symptoms-Current: moderate Context related to: living circumstances, other (Phonic alcoholism) Suicidal thoughts: other (Denies) Associated Symptoms: confused, impaired concentration, other (Obviously intoxicated, likely with alcohol) Previous symptoms: same symptoms as today Hx Tetanus, Diphtheria Vaccination/Date Given: No (unsure) Hx Influenza Vaccination/Date Given: No Hx Pneumococcal Vaccination/Date Given: No Immunizations Up to Date: No <CORRINA SCHAEFFER - Last Filed: 07/08/23 18:52> <OBINNA EATON - Last Filed: 07/09/23 04:03> - History of Present Illness Time Seen by Provider: 07/08/23 18:52 Physician History: This is a 62-year-old white male patient who presents to the emergency department escorted by law enforcement secondary to the patient being intoxicated, living alone and a danger to himself. They want this patient in the emergency retirement and have started the paperwork for this. Patient presents in a staggering gait, with incontinence of stool and stool on his legs and slurred speech. He denies suicidal homicidal ideation. He denies headache, chest pain or shortness of breath. He denies abdominal pain. Patient has a history of hypertension. (CORRINA SCHAEFFER) Allergies/Adverse Reactions: No Known Drug Allergies Allergy (Verified 11/14/22 21:18) Home Medications: No Reportable Medications [No Reported Medications] 07/08/23 [History] Travel Risk - International Travel Have you traveled outside of the country in past 3 weeks: No - Emerging Infectious Disease Are you exhibiting symptoms associated with any current EIDs: No <CORRINA SCHAEFFER - Last Filed: 07/08/23 18:52> - Past Medical History Pertinent Past Medical History: Yes Neurological History: No Pertinent History ENT History: No Pertinent History Cardiac History: Hypertension Respiratory History: No Pertinent History Endocrine Medical History: No Pertinent History Musculoskeletal History: No Pertinent History GI Medical History: No Pertinent History History: No Pertinent History Psycho-Social History: No Pertinent History Male Reproductive Disorders: No Pertinent History Other Medical History: does not treat htn-states he has no insurance - Past Surgical History Past Surgical History: Yes Neuro Surgical History: No Pertinent History Cardiac: No Pertinent History Respiratory: No Pertinent History Gastrointestinal: No Pertinent History Genitourinary: No Pertinent History Musculoskeletal: No Pertinent History Male Surgical History: No Pertinent History - Social History Smoking Status: Current every day smoker How long have you smoked: years Exposure to second hand smoke: No Drug Use: none Patient Lives Alone: No (staying w/friends) <CORRINA SCHAEFFER - Last Filed: 07/08/23 18:52> - Review of Systems Constitutional: No Symptoms Eyes: No Symptoms Ears, Nose, & Throat: No Symptoms Respiratory: No Symptoms Cardiac: No Symptoms Abdominal/Gastrointestinal: No Symptoms Genitourinary Symptoms: No Symptoms Musculoskeletal: No Symptoms Skin: No Symptoms Neurological: Other (Slurred speech likely secondary to intoxication) Psychological: Alcohol Abuse, Other Endocrine: No Symptoms Hematologic/Lymphatic: No Symptoms Immunological/Allergic: No Symptoms All Other Systems: Unable due to condition (Patient has chronic alcohol abuse issues. He is acutely intoxicated at this time.) <CORRINA SCHAEFFER - Last Filed: 07/08/23 18:52> - Physical Exam General Appearance: obese, other (Acutely intoxicated, likely with alcohol) Eyes, Ears, Nose, Throat Exam: normal ENT inspection, moist mucous membranes Neck Exam: normal inspection, non-tender, supple, full range of motion Respiratory Exam: normal breath sounds, lungs clear, airway intact, No chest tenderness, No respiratory distress Cardiovascular Exam: regular rate/rhythm, normal heart sounds, normal peripheral pulses Gastrointestinal/Abdominal Exam: soft, normal bowel sounds, No tenderness Extremities Exam: normal inspection, normal range of motion, other (Feces on his lower extremities), No evidence of injury Current Suicidality: denies suicide plan 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 as tested (However, patient appears acutely intoxicated, likely with alcohol) Appearance: impaired insight Behavior/Eye Contact/Speech: intoxicated appearance Skin Exam: normal color, warm, dry SpO2 Interpretation: normal SpO2: 96 O2 Delivery: Room Air <CORRINA SCHAEFFER - Last Filed: 07/08/23 18:52> - Nursing Vital Signs Nursing Vital Signs: Initial Vital Signs Temperature 98.2 F 07/08/23 18:34 Pulse Rate 74 07/08/23 18:34 Respiratory Rate 20 07/08/23 18:34 Blood Pressure 150/93 07/08/23 18:34 O2 Sat by Pulse Oximetry 96 07/08/23 18:34 Pain Scale Pain Intensity 0 - Course Nursing assessment & vital signs reviewed: Yes <CORRINA SCHAEFFER - Last Filed: 07/08/23 18:52> - Course EKG Interpreted by Me: RATE (67), Sinus Rhythm, NORMAL AXIS, NORMAL INTERVALS - CT Exams Head CT Interpretation: Tele-radiologist Report (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) <OBINNA EATON - Last Filed: 07/09/23 04:03> Ordered Tests: Active Orders 24 hr Category Date Time Status Reconnaissance Crewmember STAT Care 07/08/23 18:38 Active Clean Catch Urine Specimen STAT Care 07/08/23 18:37 Active EKG-ER Only STAT Care 07/08/23 18:37 Active POCT Glucose Check STAT Care 07/08/23 18:37 Active HEAD WITHOUT CONTRAST [CT] Stat Exams 07/08/23 19:02 Taken ACETAMINOPHEN Stat Lab 07/08/23 19:00 Completed Alcohol [ETHYL ALCOHOL] Stat Lab 07/08/23 22:59 Completed Alcohol [ETHYL ALCOHOL] Stat Lab 07/09/23 01:12 Completed CBC W DIFF Stat Lab 07/08/23 19:00 Completed CMP Stat Lab 07/08/23 19:00 Completed ETHYL ALCOHOL Stat Lab 07/08/23 19:00 Completed POCT GLUCOSE Stat Lab 07/08/23 19:47 Completed SALICYLATE Stat Lab 07/08/23 19:00 Completed UA W/RFX UR CULTURE Stat Lab 07/08/23 19:35 Completed Urine Triage Profile Stat Lab 07/08/23 19:35 Completed Medication Summary Discontinued Medications Generic Name Dose Route Start Last Admin Trade Name Freq PRN Reason Stop Dose Admin Sodium Chloride 1,000 mls @ 999 mls/hr 07/08/23 18:37 07/08/23 19:58 Sodium Chloride 0.9% 1000 Ml IV 07/08/23 19:37 Infused .Q1H1M STA Infusion Sodium Chloride Confirm 07/08/23 18:51 Sodium Chloride 0.9% 1000 Ml Administered 07/08/23 18:52 Dose 1,000 mls @ ud .ROUTE .STK-MED ONE Nicotine 21 mg 07/08/23 23:05 07/08/23 23:45 Nicotine 21 Mg/Patch Patch TOP 07/08/23 23:06 21 mg STAT ONE Administration Ondansetron HCl 4 mg 07/08/23 18:37 07/08/23 18:53 Ondansetron Hcl 4 Mg/2 Ml Vial IV 07/08/23 18:38 4 mg STAT ONE Administration Ondansetron HCl Confirm 07/08/23 18:51 Ondansetron Hcl 4 Mg/2 Ml Vial Administered 07/08/23 18:52 Dose 4 mg .ROUTE .STK-MED ONE Pantoprazole Sodium 40 mg 07/08/23 18:39 07/08/23 18:53 Pantoprazole 40 Mg Vial IV 07/08/23 18:40 40 mg STAT ONE Administration Pantoprazole Sodium Confirm 07/08/23 18:51 Pantoprazole 40 Mg Vial Administered 07/08/23 18:52 Dose 40 mg IV .STK-MED ONE Thiamine HCl 100 mg 07/08/23 18:37 07/08/23 18:53 Thiamine Hcl 200 Mg/2 Ml Vial IV 07/08/23 18:38 100 mg STAT ONE Administration Thiamine HCl Confirm 07/08/23 18:51 Thiamine Hcl 200 Mg/2 Ml Vial Administered 07/08/23 18:52 Dose 200 mg .ROUTE .STK-MED ONE Lab/Rad Data: Laboratory Result Diagrams 07/08/23 19:00 07/08/23 19:00 Laboratory Results 07/09/23 07/08/23 07/08/23 Range/Units 01:12 22:59 19:47 WBC (4.0-10.5) x10^3/uL RBC (4.1-5.6) x10^6/uL Hgb (12.5-18.0) g/dL Hct (42-50) % MCV (78-100) fL MCH (26-32) pg MCHC (32-36) g/dL RDW (11.5-14.0) % Plt Count (150-450) x10^3/uL MPV (7.5-11.0) fL Gran % (36.0-66.0) % Immature Gran % (Auto) (0.00-0.4) % Nucleat RBC Rel Count (0.00-0.1) % Eos # (Auto) (0-0.5) x10^3/uL Immature Gran # (Auto) (0.00-0.03) x10^3u/L Absolute Lymphs (auto) (1.0-4.6) x10^3/uL Absolute Monos (auto) (0.0-1.3) x10^3/uL Absolute Nucleated RBC (0.00-0.01) x10^3u/L Lymphocytes % (24.0-44.0) % Monocytes % (0.0-12.0) % Eosinophils % (0.00-5.0) % Basophils % (0.0-0.4) % Absolute Granulocytes (1.4-6.9) x10^3/uL Basophils # (0-0.4) x10^3/uL Sodium (135-145) mmol/L Potassium (3.5-5.1) mmol/L Chloride (98-107) mmol/L Carbon Dioxide (22-30) mmol/L Anion Gap (5-15) MEQ/L BUN (9-20) mg/dL Creatinine (0.66-1.25) mg/dL Estimated GFR ML/MIN Glucose (74-106) mg/dL POC Glucometer 83 (74 to 106) mg/dL Calcium (8.4-10.2) mg/dL Total Bilirubin (0.2-1.3) mg/dL AST (17-59) U/L ALT (0-50) U/L Alkaline Phosphatase (38-126) U/L Serum Total Protein (6.3-8.2) g/dL Albumin (3.5-5.0) g/dL Urine Color (Yellow) Urine Appearance (Clear) Urine pH (4.6-8.0) Ur Specific [place] (1.005-1.030) Urine Protein (Negative) Urine Glucose (UA) (Negative) mg/dL Urine Ketones (Negative) Urine Blood (Negative) Urine Nitrite (Negative) Urine Bilirubin (Negative) Urine Urobilinogen (0.2) mg/dL Ur Leukocyte Esterase (Negative) U Hyaline Cast (Auto) (0-2) /LPF Urine Microscopic RBC (0-5) /HPF Urine Microscopic WBC (0-5) /HPF Ur Epithelial Cells (None Seen) /HPF Urine Bacteria (None Seen) /HPF Urine Culture Reflexed (NO) Salicylates (2-20) mg/dL Urine Opiates Level (NEGATIVE) Ur Methadone (NEGATIVE) Acetaminophen (10-30) ug/ml Urine Barbiturates (NEGATIVE) Ur Phencyclidine (PCP) (NEGATIVE) Urine Amphetamine (NEGATIVE) U Benzodiazepine Level (NEGATIVE) Urine Cocaine (NEGATIVE) Urine Marijuana (THC) (NEGATIVE) Ethyl Alcohol 103 H 169 H (0-10) mg/dL Influenza Type A Ag (NEGATIVE) Influenza Type B Ag (NEGATIVE) RSV (PCR) (NEGATIVE) SARS-CoV-2 (PCR) (NEGATIVE) 07/08/23 07/08/23 07/08/23 Range/Units 19:35 19:35 19:30 WBC (4.0-10.5) x10^3/uL RBC (4.1-5.6) x10^6/uL Hgb (12.5-18.0) g/dL Hct (42-50) % MCV (78-100) fL MCH (26-32) pg MCHC (32-36) g/dL RDW (11.5-14.0) % Plt Count (150-450) x10^3/uL MPV (7.5-11.0) fL Gran % (36.0-66.0) % Immature Gran % (Auto) (0.00-0.4) % Nucleat RBC Rel Count (0.00-0.1) % Eos # (Auto) (0-0.5) x10^3/uL Immature Gran # (Auto) (0.00-0.03) x10^3u/L Absolute Lymphs (auto) (1.0-4.6) x10^3/uL Absolute Monos (auto) (0.0-1.3) x10^3/uL Absolute Nucleated RBC (0.00-0.01) x10^3u/L Lymphocytes % (24.0-44.0) % Monocytes % (0.0-12.0) % Eosinophils % (0.00-5.0) % Basophils % (0.0-0.4) % Absolute Granulocytes (1.4-6.9) x10^3/uL Basophils # (0-0.4) x10^3/uL Sodium (135-145) mmol/L Potassium (3.5-5.1) mmol/L Chloride (98-107) mmol/L Carbon Dioxide (22-30) mmol/L Anion Gap (5-15) MEQ/L BUN (9-20) mg/dL Creatinine (0.66-1.25) mg/dL Estimated GFR ML/MIN Glucose (74-106) mg/dL POC Glucometer (74 to 106) mg/dL Calcium (8.4-10.2) mg/dL Total Bilirubin (0.2-1.3) mg/dL AST (17-59) U/L ALT (0-50) U/L Alkaline Phosphatase (38-126) U/L Serum Total Protein (6.3-8.2) g/dL Albumin (3.5-5.0) g/dL Urine Color Yellow (Yellow) Urine Appearance Clear (Clear) Urine pH 6.0 (4.6-8.0) Ur Specific [place] <=1.005 (1.005-1.030) Urine Protein Negative (Negative) Urine Glucose (UA) Negative (Negative) mg/dL Urine Ketones Negative (Negative) Urine Blood Negative (Negative) Urine Nitrite Negative (Negative) Urine Bilirubin Negative (Negative) Urine Urobilinogen 0.2 (0.2) mg/dL Ur Leukocyte Esterase Negative (Negative) U Hyaline Cast (Auto) NONE SEEN (0-2) /LPF Urine Microscopic RBC 0-2 (0-5) /HPF Urine Microscopic WBC 0-2 (0-5) /HPF Ur Epithelial Cells None Seen (None Seen) /HPF Urine Bacteria None Seen (None Seen) /HPF Urine Culture Reflexed NO (NO) Salicylates (2-20) mg/dL Urine Opiates Level NEGATIVE (NEGATIVE) Ur Methadone NEGATIVE (NEGATIVE) Acetaminophen (10-30) ug/ml Urine Barbiturates NEGATIVE (NEGATIVE) Ur Phencyclidine (PCP) NEGATIVE (NEGATIVE) Urine Amphetamine NEGATIVE (NEGATIVE) U Benzodiazepine Level NEGATIVE (NEGATIVE) Urine Cocaine NEGATIVE (NEGATIVE) Urine Marijuana (THC) NEGATIVE (NEGATIVE) Ethyl Alcohol (0-10) mg/dL Influenza Type A Ag NEGATIVE (NEGATIVE) Influenza Type B Ag NEGATIVE (NEGATIVE) RSV (PCR) NEGATIVE (NEGATIVE) SARS-CoV-2 (PCR) NEGATIVE (NEGATIVE) 07/08/23 07/08/23 Range/Units 19:00 19:00 WBC 9.3 (4.0-10.5) x10^3/uL RBC 4.61 (4.1-5.6) x10^6/uL Hgb 15.6 (12.5-18.0) g/dL Hct 47.8 (42-50) % MCV 103.7 H (78-100) fL MCH 33.8 H (26-32) pg MCHC 32.6 (32-36) g/dL RDW 14.1 H (11.5-14.0) % Plt Count 263 (150-450) x10^3/uL MPV 8.7 (7.5-11.0) fL Gran % 68.0 H (36.0-66.0) % Immature Gran % (Auto) 0.2 (0.00-0.4) % Nucleat RBC Rel Count 0.0 (0.00-0.1) % Eos # (Auto) 0.08 (0-0.5) x10^3/uL Immature Gran # (Auto) 0.02 (0.00-0.03) x10^3u/L Absolute Lymphs (auto) 1.88 (1.0-4.6) x10^3/uL Absolute Monos (auto) 0.95 (0.0-1.3) x10^3/uL Absolute Nucleated RBC 0.00 (0.00-0.01) x10^3u/L Lymphocytes % 20.2 L (24.0-44.0) % Monocytes % 10.2 (0.0-12.0) % Eosinophils % 0.9 (0.00-5.0) % Basophils % 0.5 (0.0-0.4) % Absolute Granulocytes 6.31 (1.4-6.9) x10^3/uL Basophils # 0.05 (0-0.4) x10^3/uL Sodium 144 (135-145) mmol/L Potassium 4.4 (3.5-5.1) mmol/L Chloride 104 (98-107) mmol/L Carbon Dioxide 30 (22-30) mmol/L Anion Gap 14.3 (5-15) MEQ/L BUN 7 L (9-20) mg/dL Creatinine 0.73 (0.66-1.25) mg/dL Estimated GFR 103.5 ML/MIN Glucose 88 (74-106) mg/dL POC Glucometer (74 to 106) mg/dL Calcium 8.6 (8.4-10.2) mg/dL Total Bilirubin 0.30 (0.2-1.3) mg/dL AST 31 (17-59) U/L ALT 20 (0-50) U/L Alkaline Phosphatase 95 (38-126) U/L Serum Total Protein 7.4 (6.3-8.2) g/dL Albumin 3.9 (3.5-5.0) g/dL Urine Color (Yellow) Urine Appearance (Clear) Urine pH (4.6-8.0) Ur Specific [place] (1.005-1.030) Urine Protein (Negative) Urine Glucose (UA) (Negative) mg/dL Urine Ketones (Negative) Urine Blood (Negative) Urine Nitrite (Negative) Urine Bilirubin (Negative) Urine Urobilinogen (0.2) mg/dL Ur Leukocyte Esterase (Negative) U Hyaline Cast (Auto) (0-2) /LPF Urine Microscopic RBC (0-5) /HPF Urine Microscopic WBC (0-5) /HPF Ur Epithelial Cells (None Seen) /HPF Urine Bacteria (None Seen) /HPF Urine Culture Reflexed (NO) Salicylates < 1.0 L (2-20) mg/dL Urine Opiates Level (NEGATIVE) Ur Methadone (NEGATIVE) Acetaminophen < 10 L (10-30) ug/ml Urine Barbiturates (NEGATIVE) Ur Phencyclidine (PCP) (NEGATIVE) Urine Amphetamine (NEGATIVE) U Benzodiazepine Level (NEGATIVE) Urine Cocaine (NEGATIVE) Urine Marijuana (THC) (NEGATIVE) Ethyl Alcohol 265 H (0-10) mg/dL Influenza Type A Ag (NEGATIVE) Influenza Type B Ag (NEGATIVE) RSV (PCR) (NEGATIVE) SARS-CoV-2 (PCR) (NEGATIVE) - Progress Progress: unchanged <CORRINA SHCAEFFER - Last Filed: 07/08/23 18:52> - Progress Counseled pt/family regarding: lab results, diagnosis, need for follow-up, rad results <OBINNA EATON - Last Filed: 07/09/23 04:03> - Progress Progress Note: 07/08/23 18:56 This patient's medical issue is 1 of moderate to high complexity. The level of complexity in the workup performed is based on review of the patient's past medical history, review of the patient's medication list, review of patient drug allergy list, history present illness and physical findings on examination. The workup in this patient includes placement of intravenous line, twelve-lead EKG, urinalysis, urine drug triage, CBC, CMP, salicylate level, acetaminophen level, alcohol level, infusion of 1 L normal saline solution, infusion of 4 mg intravenous Zofran, infusion of Protonix 40 mg intravenously, CT scan of the head. 07/08/23 18:58 I am transferring care of this patient to Dr. Obinna Eaton at shift change. He will follow-up on the results and make final disposition (CORRINA SCHAEFFER) Patient endorsed to Dr. Eaton at approximately [address] Eaton advised follow-up on labs and to make final disposition. Laboratory workup reveals patient to be intoxicated. CT head negative for acute intracranial pathology. We contacted [facility]. They advised to repeat alcohol level until it reaches a level 150 or less before they can perform their assessment. Patient's alcohol level was 103. At [facility] assessed patient and advised discharged home with a safety plan. Patient reassessed. He is well. He has no complaints. We have a close family friend will be taking patient home. Patient states he is ready for discharge. Vital stable. No indication for further workup. Patient voices no other complaints or concerns at this time. Portions of this note were created with voice recognition technology. There may be grammatical, spelling, punctuation or sound alike errors 07/09/23 04:00 (OBINNA EATON) - Departure Departure Disposition: In-patient Admission Critical Care Time: No <CORRINA SCHAEFFER - Last Filed: 07/08/23 18:52> - Departure Departure Disposition: Home <OBINNA EATON - Last Filed: 07/09/23 04:03> - Departure Clinical Impression: Alcohol intoxication Condition: Stable Referrals: DOCTOR,NO FAMILY [Primary Care Provider] - Follow up/PCP as directed TASNEEM OWEN MD [ACTIVE STAFF] - Follow up/PCP as directed Additional Instructions: Discharge/Care Plan CARA PATEL was seen on 07/09/23 in the Emergency Room. The patient was counseled regarding Diagnosis,Lab results, Imaging studies, need for follow up and when to return to the Emergency Room. Prescriptions given: Discharge Note I have spoken with the patient and/or caregivers. I have explained the patient's condition, diagnosis and treatment plan based on the information available to me at this time. I have answered the patient's and/or caregiver's questions and addressed any concerns. The patient and/or caregivers have as good understanding of the patient's diagnosis, condition and treatment plan as can be expected at this point. The vital signs have been stable. The patient's condition is stable and appropriate for discharge from the emergency department. The patient will pursue further outpatient evaluation with the primary care physician or other designated or consulting physician as outlined in the discharge instructions. The patient and/or caregivers are agreeable to this plan of care and follow-up instructions have been explained in detail. The patient and/or caregivers have received these instruction. The patient/and or caregivers are aware that any significant change in condition or worsening of symptoms should prompt an immediate return to this or the closest emergency department or call 911.
[2023-07-08 19:41] LABS: Absolute Neutrophil Ct (ANC) 6.31 x10^3/uL (1.4-6.9); BASOPHIL % 0.5 % (0.0-0.4); Basophil (Absolute #) 0.05 x10^3/uL (0-0.4); Eosinophil % 0.9 % (0.00-5.0); Eosinophil (Absolute #) 0.08 x10^3/uL (0-0.5); Hematocrit 47.8 % (42-50); Hemoglobin 15.6 g/dL (12.5-18.0); IMMATURE GRAN # 0.02 x10^3u/L (0.00-0.03); IMMATURE GRAN % 0.2 % (0.00-0.4); Lymphocyte (Absolute #) 1.88 x10^3/uL (1.0-4.6); Lymphocytes % 20.2 % (24.0-44.0); Mean Cell Volume 103.7 fL (78-100); Mean Corpuscular Hemoglobin 33.8 pg (26-32); Mean Corpuscular Hgb Concent. 32.6 g/dL (32-36); Mean Platelet Volume 8.7 fL (7.5-11.0); Monocyte (Absolute #) 0.95 x10^3/uL (0.0-1.3); Monocytes % 10.2 % (0.0-12.0); Platelet Count 263 x10^3/uL (150-450); Red Blood Count 4.61 x10^6/uL (4.1-5.6); Red Cell Distribution Width 14.1 % (11.5-14.0); White Blood Count 9.3 x10^3/uL (4.0-10.5)
[2023-07-08 19:47] LABS: Appearance Clear (Clear); Bacteria None Seen /HPF (None Seen); Bilirubin Negative (Negative); Blood Negative (Negative); Epithelial Cells None Seen /HPF (None Seen); Glucose, Urine Negative (Negative); Hyaline Casts NONE SEEN /LPF (0-2); Ketones Negative (Negative); Leukocyte Esterase Negative (Negative); Nitrite Negative (Negative); Protein,Urine Dip Negative (Negative); RBC 0-2 /HPF (0-5); Specific Gravity <=1.005 (1.005-1.030); Urobilinogen 0.2 mg/dL (0.2); WBC 0-2 /HPF (0-5)
[2023-07-08 19:52] LABS: ADD URINE CULTURE? NO (NO)
[2023-07-08 19:57] LABS: ACETAMINOPHEN < 10 ug/ml (10-30); ALBUMIN 3.9 g/dL (3.5-5.0); ALKALINE PHOSPHATASE 95 U/L (38-126); ANION GAP 14.3 MEQ/L (5-15); BLOOD UREA NITROGEN 7 mg/dL (9-20); CHLORIDE 104 mmol/L (98-107); Calcium 8.6 mg/dL (8.4-10.2); Carbon Dioxide 30 mmol/L (22-30); Creatinine 1 0.73 mg/dL (0.66-1.25); EST GLOMERULAR FILTRATION RATE 103.5 ML/MIN; ETHYL ALCOHOL 265 mg/dL (0-10); Glucose 88 mg/dL (74-106); Potassium 4.4 mmol/L (3.5-5.1); SALICYLATE < 1.0 mg/dL (2-20); SGOT/AST 31 U/L (17-59); SGPT/ALT 20 U/L (0-50); SODIUM 144 mmol/L (135-145); Total Protein 7.4 g/dL (6.3-8.2)
[2023-07-08 20:12] LABS: Amphetamine,Urine NEGATIVE (NEGATIVE); Barbiturate,Urine NEGATIVE (NEGATIVE); Benzodiazepine,Urine NEGATIVE (NEGATIVE); Cocaine,Urine NEGATIVE (NEGATIVE); Methadone,Urine NEGATIVE (NEGATIVE); Opiate,Urine NEGATIVE (NEGATIVE); PCP,Urine NEGATIVE (NEGATIVE); THC,Urine NEGATIVE (NEGATIVE)
[2023-07-08 20:15] LABS: INFLUENZA A NEGATIVE (NEGATIVE); INFLUENZA B NEGATIVE (NEGATIVE); RESPIRATORY SYNCTIAL VIRUS NEGATIVE (NEGATIVE); SARS-CoV-2 Xpert Express NEGATIVE (NEGATIVE)
[2023-07-08] MEDS: Nicoderm CQ 21 MG TOP ONE (23:45)
[2023-07-09 00:04] VITALS: RESP 18
[2023-07-09 04:01] VITALS: PULSE 64; O2SAT 93
[2023-07-09 04:02] VITALS: BP 144/77
--- NOTE | 2023-07-09 08:38 | XRAY ---
Indication: Altered mental status. Multiple contiguous axial images obtained through the head without contrast. Comparison: November 15, 2022 Again age-appropriate global atrophy, moderate periventricular degenerative micro-ischemia bilaterally, remote lacunar infarct right thalamus, and small focus remote infarct right parietal lobe posteriorly. No acute intracranial hemorrhage, abnormal extra-axial fluid collection, or mass effect. Ventricular system remains prominent. Bony calvarium intact. Mild mucosal thickening left maxillary and lesser degree both ethmoid sinuses. Mastoid air cells are clear. Impression: 1. Continued nonacute senile brain with remote lacunar infarct right thalamus and small remote infarct right parietal lobe. 2. Stable prominent ventricular system. Again rule out normal pressure hydrocephalus. 3. Incidental paranasal sinus disease.
== END 2023-07-09 04:20 | disposition home or self-care (01) ==
LOC: EEVIPCON 18:34 → ED 18:34
DX: F10.129 Alcohol abuse with intoxication, unspecified (principal); Y90.8 Blood alcohol level of 240 mg/100 ml or more; I10 Essential (primary) hypertension; Z72.0 Tobacco use
CPT/HCPCS: 0241U; 36415; 70450; 80053; 80143; 80179; 80307; 81001; 82077; 82947; 85025; 90791; 93005; 93041; 96374; 96375; 99284; Q3014; J2405; A9270-GY